=== PATIENT | female | born 1940 | race Caucasian/White ===

== ENCOUNTER → 2016-07-25 | Outpatient (CLI) | payer MEDICARE ==
[~2016-07-25] MED LIST: AMIO100T4 PO; AMIO200T PO; APIX5TAB2 PO; ATEN25TA PO; Amiodarone Hcl PO; DILT120C17 PO; DILT120C82 PO; FLUO40CA PO; HCTZ12.5T PO; NAPR220T76 PO; OMEP40CA36 PO; POTA10TA36 PO
--- OUTSIDE RECORDS SUMMARY | 2016-07-25 09:55 | XMS REPORT | Continuity of Care Document ---
Author Author [facility] Organization [facility] Address Unknown Phone Unavailable Care Team Providers Care Loan Counselor Name Role Phone Amarilys Masterson PCP [phone] Source Comments Some departments are not documenting in the electronic medical record. If you do not see the information that you expected, contact Release of Information in the Health Information Management department at [phone] for further assistance in locating additional records.[facility] Active Allergies and Adverse Reactions Allergen Noted Date Severity Reactions Comments Morphine 05/04/2014 NAUSEA AND VOMITING Current Medications Prescription Sig. Disp. Refills Start End Date Status Date amiodarone (CORDARONE) Take 200 mg by mouth Active 200 mg tablet daily. Decrease to 100mg on Friday, Friday, and Friday.All other days continue 200mg potassium chloride(+) Take 10 mEq by mouth Active (MICRO-K) 10 mEq capsule daily. apixaban (ELIQUIS) 5 mg Take 5 mg by mouth twice Active tab tablet daily. diltiazem SR (+) Take 120 mg by mouth Active (CARDIZEM SR) 120 mg twice daily. capsule FLUoxetine(+) (PROZAC) 40 Take 40 mg by mouth Active mg capsule daily. omeprazole DR(+) Take 40 mg by mouth Active (PRILOSEC) 40 mg capsule daily. Active Problems Problem Noted Date HTN (hypertension) 05/07/2014 Last Assessment & Plan: Controlled with meds. Her Home BP reading are falseliy high probably due to cuff error. Atrial fibrillation (HCC) 05/04/2014 Overview: 03/2014 - Admitted to hospital for newly dx AF with RVR, failed DCCV, Amiodarone intitiated, failed second DCCV. Plan to increase Amiodarone and repeat DCCV in one week. ([facility]) 04/26/2014 - DCCV: Successful cardioversion to terminate AF. ([facility]). 05/02/2014 - Stress Test: No ischemia or infarction on SPECT images. Small LV size with good contractility. EF=57%. Gated images are unreliable d/t underlying AF. ([facility]). 06/06/14 Afib ablation 01/01/16-per Via [facility]--EKG SR (sent to scan). No complaints of palpitations. Off amio since 04/2015. On cartia and eliquis L ast Assessment & Plan: Doing well on low dose amiodarone. LFTs and TSH at Dr Chopra office every 6 months. Continue Amio as long as her labs are good. Chronic anticoagulation 05/04/2014 Overview: On Eliquis Last Assessment & Plan: CHADSVASC score is high Continue Eliquis for [facility]. TIA (transient ischemic attack) 05/04/2014 GI bleed 05/04/2014 Overview: History of multiple GI bleeds PUD (peptic ulcer disease) 05/04/2014 Chest pain 05/04/2014 DWYER (dyspnea on exertion) 05/04/2014 Depression 05/04/2014 Most Recent Encounters Date Type Specialty Providers Description 07/02/2016 Documentation Cardiology Ritu Balbuena RN Amiodarone Monitoring - Primary Mobile Manager Dr. Peyton taveras. Social History Tobacco Use Types Packs/Day Years Used Date Never Smoker Smokeless Tobacco: Never Used Alcohol Use Drinks/Week oz/Week Comments No Last Filed Vital Signs Vital Sign Reading Time Taken Blood Pressure 142/72 02/13/2015 9:10 AM CDT Pulse 68 02/13/2015 9:10 AM CDT Temperature 36.8 C (98.2 F) 06/07/2014 9:26 AM CAREER COACH Respiratory Rate - - Height 1.524 m (5') 02/13/2015 9:10 AM CDT Weight 65.499 kg (144 lb 6.4 oz) 02/13/2015 9:10 AM CDT Body Mass Index 28.2 02/13/2015 9:10 AM CDT Oxygen Saturation 98% 06/07/2014 9:26 AM CAREER COACH Plan of Care Health Maintenance Due Date Last Done Comments Physical (Comprehensive) 1947 Exam Pertussis Vaccine 1950 Tetanus Vaccine 02/12/1956 Shingles Vaccine 1999 Osteoporosis Screening 02/12/2004 Prevnar/Pneumovax (#1) 02/12/2004 Influenza Vaccine 02/15/2016 Results from Last 3 Months Not on file
--- NOTE | 2016-07-25 19:02 | Diagnostic Imaging Report ---
Bilateral screening mammogram. The current study was also evaluated with a Computer Aided Detection (CAD) system. INDICATION: Screening. No current complaints stated on the questionnaire. COMPARISON: 06/14/15. FINDINGS: The breasts are composed of scattered fibroglandular hyperintensities. There are benign-appearing calcifications seen. A surveillance monitor projects over the medial aspect of the left breast. Allowing for technique and positional differences, no suspicious change is seen. IMPRESSION: No significant change. ACR BI-RADS Category 2: Benign findings. Result letter will be mailed to the patient. Note: At least 10% of breast cancer is not imaged by mammography. Dictated by: Dictated on workstation # [id number]
== END ==
LOC: RAD 09:52
PROVIDERS: ATTEND Internal Medicine
DX: Z12.31 Encounter for screening mammogram for malignant neoplasm of breast (principal)
CPT/HCPCS: 77067

== ENCOUNTER → 2017-03-05 | Day surgery (SDC) | payer MEDICARE ==
[~2017-03-05] MED LIST changes: +LIDOCAINE 2% VISCOUS 15 ML UDC ONE; +NS IV 1000 ML 1,000 ML IV SCH; +NS IV 1000 ML 1,000 ML ONE
--- OUTSIDE RECORDS SUMMARY | 2017-03-05 08:36 | XMS REPORT | Clinical Summary ---
Author Author [facility] Organization [facility] Address Unknown Phone Unavailable Care Team Providers Care Chief Librarian Extension Department Name Role Phone PCP Unavailable Source Comments Some departments are not documenting in the electronic medical record. If you do not see the information that you expected, contact Release of Information in the Health Information Management department at [phone] for further assistance in locating additional records.[facility] Allergies Active Allergy Reactions Severity Noted Date Comments Morphine NAUSEA AND VOMITING 05/04/2014 Current Medications Prescription Sig. Disp. Refills Start [...] and repeat DCCV in one week. ([facility]) 04/26/2014 - DCCV: Successful cardioversion to terminate AF. ([facility]). 05/02/2014 - Stress Test: No ischemia or infarction on SPECT images. Small LV size with good contractility. EF=57%. Gated images are unreliable d/t underlying AF. ([facility]). 06/06/14 Afib ablation 01/01/16-per Via [facility]--EKG SR (sent to scan). No complaints of palpitations. Off amio since 04/2015. On cartia and eliquis L ast Assessment & Plan: Doing well on low dose amiodarone. LFTs and TSH at Dr Chopra office every 6 months. Continue Amio as long as her labs are good. Chronic anticoagulation 05/04/2014 Overview: On Eliquis Last Assessment & Plan: CHADSVASC score is high Continue Eliquis for terminal block assembler. TIA (transient ischemic attack) 05/04/2014 GI bleed 05/04/2014 Overview: History of multiple GI bleeds PUD (peptic ulcer disease) 05/04/2014 Chest pain 05/04/2014 DWYER (dyspnea on exertion) 05/04/2014 Depression 05/04/2014 Social History Tobacco Use Types Packs/Day Years Used Date Never Smoker Smokeless Tobacco: Never Used Alcohol Use Drinks/Week oz/Week Comments No Sex Assigned at Date Recorded Not on file Last Filed Vital Signs Vital Sign Reading Time Taken Blood Pressure 142/72 02/13/2015 9:10 AM CDT Pulse 68 02/13/2015 9:10 AM CDT Temperature 36.8 C (98.2 F) 06/07/2014 9:26 AM ECONOMIC DEVELOPMENT SPECIALIST Respiratory Rate - - Oxygen Saturation 98% 06/07/2014 9:26 AM ECONOMIC DEVELOPMENT SPECIALIST Inhaled Oxygen - - Concentration Weight 65.5 kg (144 lb 6.4 oz) 02/13/2015 9:10 AM CDT Height 152.4 cm (5') 02/13/2015 9:10 AM CDT Body Mass Index 28.2 02/13/2015 9:10 AM CDT Plan of Treatment Health Maintenance Due Date Last Done Comments PHYSICAL (COMPREHENSIVE) 1947 EXAM PERTUSSIS VACCINE 1950 TETANUS VACCINE 02/12/1956 SHINGLES VACCINE 1999 OSTEOPOROSIS SCREENING 02/12/2004 PREVNAR/PNEUMOVAX (#1) 02/12/2004 INFLUENZA VACCINE 03/16/2017 Results Not on filefrom Last 3 Months
--- OUTSIDE RECORDS SUMMARY | 2017-03-05 08:36 | XMS REPORT | Continuity of Care Document ---
Author Author [facility] Organization [facility] Address Unknown Phone Unavailable Allergies Active Description Code Type Severity Reaction Onset Reported/Identified Relationship to Patient Clinical Status Yes morphine [id number] Drug Allergy Moderate NAUSEA 04/06/2014 Medications Problems Date Dx Coded Attending Type Code Diagnosis Diagnosed By 04/08/2014 JAMES KIMBLE MD Ot 300.00 ANXIETY STATE NOS 04/08/2014 JAMES KIMBLE MD Ot 311 DEPRESSIVE DISORDER NEC 04/08/2014 JAMES KIMBLE MD Ot 401.9 HYPERTENSION NOS 04/08/2014 JAMES KIMBLE MD Ot 427.31 ATRIAL FIBRILLATION 04/08/2014 JAMES KIMBLE MD Ot 530.81 ESOPHAGEAL REFLUX 04/08/2014 JAMES KIMBLE MD Ot 786.50 CHEST PAIN NOS 04/08/2014 JAMES KIMBLE MD Ot V03.82 PROPHYLACTIC VACC AGAINST STREPTOCOCCUS 04/08/2014 JAMES KIMBLE MD Ot V04.81 ND FOR PROPHYLACTIC VACCIN AND INOCULATI 04/08/2014 JAMES KIMBLE MD Ot V12.54 PERSONAL HX OF TIA, CEREBRAL INFARCTION 04/14/2014 JEFFY AC MD Ot 272.4 HYPERLIPIDEMIA NEC/NOS 04/14/2014 JEFFY AC MD Ot 276.8 HYPOPOTASSEMIA 04/14/2014 JEFFY AC MD Ot 300.00 ANXIETY STATE NOS 04/14/2014 JEFFY AC MD Ot 311 DEPRESSIVE DISORDER NEC 04/14/2014 JEFFY CA MD Ot 401.9 HYPERTENSION NOS 04/14/2014 JEFFY AC MD Ot 427.31 ATRIAL FIBRILLATION 04/14/2014 JEFFY AC MD Ot 530.81 ESOPHAGEAL REFLUX 04/14/2014 JEFFY AC MD Ot 785.9 CARDIOVAS SYS SYMP NEC 04/14/2014 JEFFY AC MD Ot 786.50 CHEST PAIN NOS 04/14/2014 JEFFY AC MD Ot 799.02 HYPOXEMIA 04/14/2014 JEFFY AC MD Ot V12.54 PERSONAL HX OF TIA, CEREBRAL INFARCTION 04/14/2014 JEFFY AC MD Ot V12.71 PERSONAL HISTORY OF PEPTIC ULCER DISEASE 04/14/2014 JEFFY AC MD Ot V45.77 ACQRD ABSENCE OF GENITAL ORGANS 04/14/2014 JEFFY AC MD Ot V58.61 ANTICOAGULANTS,LT,CURRENT USE 04/27/2014 JEFFY AC MD Ot 272.4 HYPERLIPIDEMIA NEC/NOS 04/27/2014 JEFFY AC MD Ot 276.8 HYPOPOTASSEMIA 04/27/2014 JEFFY AC MD Ot 401.9 HYPERTENSION NOS 04/27/2014 JEFFY AC MD Ot 427.31 ATRIAL FIBRILLATION 04/27/2014 JEFFY AC MD Ot 785.0 TACHYCARDIA NOS 04/27/2014 JEFFY AC MD Ot 786.09 RESPIRATORY ABNORM NEC 04/27/2014 JEFFY AC MD Ot 786.50 CHEST PAIN NOS 04/27/2014 JEFFY AC MD Ot V12.54 PERSONAL HX OF TIA, CEREBRAL INFARCTION 04/27/2014 JEFFY AC MD Ot 272.4 04/27/2014 JEFFY AC MD Ot 276.8 04/27/2014 JEFFY AC MD Ot 401.9 04/27/2014 JEFFY AC MD Ot 427.31 04/27/2014 JEFFY AC MD Ot 785.0 04/27/2014 JEFFY AC MD Ot 786.09 04/27/2014 JEFFY AC MD Ot 786.50 04/27/2014 JEFFY AC MD Ot V12.54 05/09/2014 FRANK RIVERA DO Ot 300.00 ANXIETY STATE NOS 05/09/2014 FRANK RIVERA DO Ot 427.31 ATRIAL FIBRILLATION 05/09/2014 FRANK RIVERA DO Ot 786.50 CHEST PAIN NOS 05/09/2014 RANJAN ALVAREZ Ot 272.4 05/09/2014 RANJAN ALVAREZ Ot 401.9 05/09/2014 RANJAN ALVAREZ Ot 427.31 05/09/2014 RANJAN ALVAREZ Ot 786.09 05/09/2014 SOLA GIBSON YOUTH MINISTRY DIRECTOR Ot 427.31 05/30/2014 EMILY SUN RANJAN K Ot 272.4 05/30/2014 RANJAN ALVAREZ Ot 401.9 05/30/2014 RANJAN ALVAREZ K Ot 427.31 05/30/2014 EMILY SUN RANJAN K Ot 786.09 03/02/2015 OSORIO BAPTISTE, JEFFY Ellis Ot 272.4 03/02/2015 OSORIO BAPTISTE, JEFFY Ellis Ot 401.9 03/02/2015 OSORIO BAPTISTE, JEFFY Ellis Ot 427.31 03/02/2015 OSORIO BAPTISTE, JEFFY Ellis Ot 786.59 07/07/2015 JAMES KIMBLE MD Ot Z12.31 07/19/2016 Ot V76.12 OTH SCREEN MAMMO-MALIGN NEOPLASM OF PROMISE 07/19/2016 SOLA GIBSON YOUTH MINISTRY DIRECTOR Ot 427.31 ATRIAL FIBRILLATION 07/19/2016 RANJAN ALVAREZ K Ot 272.4 HYPERLIPIDEMIA NEC/NOS 07/19/2016 EMILY SUN RANJAN K Ot 401.9 HYPERTENSION NOS 07/19/2016 EMILY SUN RANJAN K Ot 427.31 ATRIAL FIBRILLATION 07/19/2016 EMILY SUN RANJAN K Ot 786.09 RESPIRATORY ABNORM NEC 07/19/2016 OSORIO BAPTISTE, JEFFY J Ot 272.4 HYPERLIPIDEMIA NEC/NOS 07/19/2016 OSORIO BAPTISTE, JEFFY Ellis Ot 401.9 HYPERTENSION NOS 07/19/2016 OSORIO BAPTISTE, JEFFY Ellis Ot 427.31 ATRIAL FIBRILLATION 07/19/2016 OSORIO BPATISTE, JEFFY Ellis Ot 786.59 CHEST PAIN NEC 07/19/2016 SHYANNE BAPTISTE, JAMES Panda Ot Z12.31 ENCNTR SCREEN MAMMOGRAM FOR MALIGNANT NE 07/25/2016 Ot V76.12 OTH SCREEN MAMMO-MALIGN NEOPLASM OF PROMISE 07/25/2016 SOLA GIBSON YOUTH MINISTRY DIRECTOR Ot 427.31 ATRIAL FIBRILLATION 07/25/2016 TISHA ALVAREZTH K Ot 272.4 HYPERLIPIDEMIA NEC/NOS 07/25/2016 TISHA ALVAREZTH K Ot 401.9 HYPERTENSION NOS 07/25/2016 TISHA ALVAREZTH K Ot 427.31 ATRIAL FIBRILLATION 07/25/2016 RANJAN ALVAREZ Ot 786.09 RESPIRATORY ABNORM NEC 07/25/2016 JEFFY AC MD Ot 272.4 HYPERLIPIDEMIA NEC/NOS 07/25/2016 JEFFY AC MD Ot 401.9 HYPERTENSION NOS 07/25/2016 JEFFY AC MD Ot 427.31 ATRIAL FIBRILLATION 07/25/2016 JEFFY AC MD Ot 786.59 CHEST PAIN NEC 07/25/2016 JAMES KIMBLE MD Ot Z12.31 ENCNTR SCREEN MAMMOGRAM FOR MALIGNANT NE 07/25/2016 JAMES KIMBLE MD Ot Z12.31 ENCNTR SCREEN MAMMOGRAM FOR MALIGNANT NE 07/25/2016 JAMES KIMBLE MD Ot Z12.31 ENCNTR SCREEN MAMMOGRAM FOR MALIGNANT NE 07/26/2016 JAMES KIMBLE MD Ot Z12.31 ENCNTR SCREEN MAMMOGRAM FOR MALIGNANT NE 08/07/2016 JAMES KIMBLE MD, Ot Z12.31 ENCNTR SCREEN MAMMOGRAM FOR MALIGNANT NE Procedures Code Description Performed By Performed On 99.61 ATRIAL CARDIOVERSION 04/07/2014 37.79 REVISION OR RELOCATION OF CARDIAC DEVICE 04/13/2014 99.61 ATRIAL CARDIOVERSION 04/13/2014 Results Encounters ACCT No. Visit Date/Time Discharge Status Pt. Type Provider Facility Loc./Unit Complaint [id number] 07/25/2016 09:52:00 2016 23:59:59 CLS Outpatient JAMES KIMBLE MD [facility] RAD SCREENING [id number] 06/14/2015 10:22:00 2014 23:59:59 CLS Outpatient JAMES KIMBLE MD [facility] RAD SCREENING [id number] 02/09/2015 11:02:00 2014 23:59:59 CLS Outpatient JEFFY AC MD [facility] LAB A-FIB,CP,HTN,FLP [id number] 05/09/2014 11:34:00 2013 12:57:00 DIS Emergency FRANK RIVERA DO [facility] ER CHEST PAIN [id number] 05/02/2014 07:09:00 2013 23:59:59 CLS Outpatient RANJAN ALVAREZ [facility] CARD AFIB [id number] 04/26/2014 10:15:00 2013 14:35:00 DIS Inpatient JEFFY AC MD [facility] ICU A FIB [id number] 04/13/2014 09:33:00 2013 16:45:00 DIS Inpatient JEFFY AC MD [facility] ICU AFIB [id number] 04/06/2014 17:33:00 2013 10:21:00 DIS Inpatient JAMES KIMBLE MD [facility] ICU AFIB RVR [id number] 04/06/2014 15:57:00 2013 23:59:59 CLS Outpatient SOLA GIBSON APRN [facility] CARD TACKACARDIA [id number] 03/05/2017 10:30:00 PEN Preadmit JEFFY AC MD [facility] CATH AFIB,SOB,HTN,HLP [id number] 03/04/2017 15:12:00 PEN Preadmit JEFFY AC MD [facility] CARD HTN I10 [id number] 04/05/2011 14:12:00 Document Registration
--- NOTE | 2017-03-05 09:32 | Diagnostic Imaging Report ---
INDICATION: Pre cardioversion. Loop recorder overlies the left chest. Heart size within the upper limits of normal, unchanged. No gross overdistention of the vascularity. No edema, pneumonia, effusion, or pneumothorax. IMPRESSION: No acute appearing abnormality Dictated by: Dictated on workstation # [id number]
[2017-03-05 09:34] LABS: RED BLOOD COUNT 4.56 10^6/uL (4.35-5.85); RED CELL DISTRIBUTION WIDTH 14.1 % (10.0-14.5); WHITE BLOOD COUNT 9.5 10^3/uL (4.3-11.0)
[2017-03-05 10:02] LABS: ALANINE AMINOTRANSFERASE 14 U/L (0-55); ALBUMIN 4.1 GM/DL (3.2-4.5); ANION GAP 11 MMOL/L (5-14); ASPARTATE AMINO TRANSFERASE 16 U/L (5-34); BILIRUBIN,TOTAL 0.6 MG/DL (0.1-1.0); BLOOD UREA NITROGEN 9 MG/DL (7-18); BUN/CREATININE RATIO 13; CALCIUM 9.3 MG/DL (8.5-10.1); CARBON DIOXIDE 23 MMOL/L (21-32); CHLORIDE 106 MMOL/L (98-107); CREATININE SERUM 0.72 MG/DL (0.60-1.30); GFR ESTIMATED > 60; GLUCOSE 109 MG/DL (70-105); POTASSIUM 3.7 MMOL/L (3.6-5.0); SODIUM 140 MMOL/L (135-145); TOTAL PROTEIN 7.3 GM/DL (6.4-8.2)
== END ==
LOC: CATH 08:34
PROVIDERS: ATTEND Internal Medicine Cardiovascular Disease
DX: I48.91 Unspecified atrial fibrillation (principal); Z53.8 Procedure and treatment not carried out for other reasons; R06.02 Shortness of breath; I10 Essential (primary) hypertension; E78.5 Hyperlipidemia, unspecified
CPT/HCPCS: 36415; 71010; 80053; 85027; 93005

== ENCOUNTER 2017-03-20 10:28 | Outpatient (CLI) | payer MEDICARE ==
[~2017-03-20] VITALS: Ht 152.4 cm; Wt 63.5 kg
[~2017-03-20 10:28] MED LIST changes: +AMIO200T2 PO; +APIX5TAB PO; +DILT120C53 PO; +FLUO40CA12 PO; -LIDOCAINE 2% VISCOUS 15 ML UDC ONE; +METO-270 PO; -NS IV 1000 ML 1,000 ML IV SCH; -NS IV 1000 ML 1,000 ML ONE
== END 2017-03-20 10:31 ==
LOC: PREOP 10:28
PROVIDERS: ATTEND Internal Medicine
DX: K22.70 Barrett's esophagus without dysplasia; Z01.818 Encounter for other preprocedural examination

== ENCOUNTER 2017-03-21 08:15 | Day surgery (SDC) | payer MEDICARE ==
--- NOTE | 2017-03-19 10:35 | HISTORY AND PHYSICAL ---
DATE OF SERVICE: DATE OF ADMISSION: 03/21/2017 This is an EGD H and P. REFERRING PHYSICIAN: Dr. Masterson. HISTORY OF PRESENT ILLNESS: The patient is a 77-year-old white female referred for surveillance EGD due to past history of Otero's esophagus. It has been well over 5 years since her last EGD which she believes was done by Dr. Davis. She reports that she feels well. She denies dysphagia, heartburn, bright red blood per rectum, melena or weight loss. She is not aware of any family history for GI tract malignancy including esophageal cancer. PAST MEDICAL HISTORY: Paroxysmal atrial fibrillation but has not required cardioversion. She was recently placed on amiodarone due to recent recurrence that required a short-term hospitalization. She also has history of hypertension and coronary artery disease with no past history of stent placement. She also denies heart failure, orthopnea, PND or pedal edema. SOCIAL HISTORY: She is with no past smoking or drinking history. PAST SURGICAL HISTORY: Significant for an appendectomy and hysterectomy for benign reasons in the distant past. FAMILY HISTORY: She is not aware of any family history for GI tract malignancy including colon cancer and esophageal cancer. PHYSICAL EXAMINATION: GENERAL: Reveals a well appearing elderly white female who appears to be in no acute distress. VITAL SIGNS: Blood pressure 110/70. CHEST: Clear. CARDIOVASCULAR: Reveals regular rate and rhythm without murmur, S3 or S4. NECK: Revealed no JVD, adenopathy or bruits. ABDOMEN: Soft, supple without mass, organomegaly or tenderness. EXTREMITIES: Reveal no cyanosis, clubbing or edema. ASSESSMENT: The patient was set up for surveillance EGD. On the 21 of March. She is to hold Eliquis 48 hours prior to her procedure and continue her other medications. I thank you for the referral of this pleasant lady. Job ID: [id number] DocumentID: [id number] Dictated Date: 03/13/2017 11:46:36 Entry Level Sales Associate Date: 03/13/2017 12:39:34 Dictated By: BHUMIKA ALMANZA MD
[~2017-03-21] VITALS: Ht 152.4 cm; Wt 63.5 kg
[2017-03-21] MEDS ORDERED: D5 LR IV SOLUTION 1,000 ML IV STA (08:29)
[2017-03-21] MEDS ORDERED: LIDOCAINE JELLY 2% (XYLOCAINE) 5 ML TUBE MM PRN (08:30)
[2017-03-21] MEDS ORDERED: HURRICAINE EXT TUBE (BENZOCAINE) XX PRN (08:30)
[2017-03-21] MEDS ORDERED: D5 LR IV SOLUTION 1,000 ML IV ONE (08:33)
[2017-03-21 08:51] VITALS: BP 126/80
--- NOTE | 2017-03-21 09:16 | Pre-Op Note & Conscious Sedat ---
Pre-Operative Progress Note H&P Reviewed The H&P was reviewed, patient examined and no changes noted. Date H&P Reviewed: Mar 21, 2017 Time H&P Reviewed: 09:15 Conscious Sedation Pre-Proced ASA Class: 2 Airway Mallampati Classification: ([place] appropriate class) I. II. III, IV Lungs Heart ASA score ASA 1: a normal healthy patient ASA 2: a patient with a mild systemic disease (mid diabetes, controlled hypertension, obesity ASA 3: a patient with a severe systemic disease that limits activity (angina , COPD, prior Myocardial infarction) ASA 4: a patient with an incapacitating disease that is a constant threat to life (CHF, renal failure) ASA 5: a moribund patient not expected to survive 24 hrs. (ruptured aneurysm) ASA 6: a declared brain patient whose organs are being harvested. For emergent operations, add the letter E after the classification Grade 2 Sedation Plan: Analgesia, Amnesia, Plan communicated to team members, Discussed options with patient/fam, Discussed risks with patient/fam Note The patient is an appropriate candidate to undergo the planned procedure, sedation, and anesthesia. The patient immediately re-assessed prior to indication. BHUMIKA ALMANZA MD Mar 21, 2017 09:16
[2017-03-21] MEDS ORDERED: fentaNYL INJECTION 100 MCG/2 ML AMP ONE (09:24)
[2017-03-21] MEDS ORDERED: HURRICAINE EXT TUBE (BENZOCAINE) ONE (09:24)
[2017-03-21] MEDS ORDERED: MIDAZOLAM 2 MG/2 ML (VERSED) VIAL ONE ×2 (09:24→09:42)
[2017-03-21] MEDS ORDERED: LIDOCAINE JELLY 2% (XYLOCAINE) 5 ML TUBE ONE (09:25)
[2017-03-21] MEDS: fentaNYL INJECTION 100 MCG/2 ML AMP IVP PRN ×2 (09:38→09:46)
[2017-03-21] MEDS: MIDAZOLAM 2 MG/2 ML (VERSED) VIAL IVP PRN ×2 (09:44→09:50)
[2017-03-21 10:10] VITALS: BP 105/65
[2017-03-21 10:40] VITALS: BP 124/72
[2017-03-21 11:19] VITALS: BP 124/72
--- NOTE | 2017-03-22 10:17 | OPERATIVE REPORT ---
DATE OF SERVICE: 03/21/2017 REFERRING PHYSICIAN: Hemant Masterson MD. EGD is performed for surveillance purposes due to past history of Otero's esophagus. The patient was placed in the left lateral decubitus position. The endoscope was inserted into the oral cavity and under direct visualization the esophagus was intubated. The scope was passed down the esophagus through the stomach and second portion of the duodenum. Careful inspection was made as the endoscope was withdrawn. The patient tolerated the procedure well. FINDINGS: Posterior hypopharynx arytenoid aperture, true and false vocal folds were unremarkable on gross inspection. Proximal mid esophagus were unremarkable. A small hiatal hernia was present. The Z line was proximally placed at 35 cm from the incisoral orifice. The Z line was somewhat fragmented and compatible with short segment Otero's. There was no evidence for erosive esophagitis and no evidence to suggest malignancy on gross inspection. No rings, webs or strictures were present. Four-quadrant biopsies were obtained and submitted for histopathology. The cardia, fundus and antrum of the stomach were unremarkable as was the pylorus, the pyloric channel, duodenal bulb and second portion of the duodenum. ASSESSMENT: Findings suggest short-segment Otero's with a small hiatal hernia, but no evidence for erosive esophagitis or malignancy. As long as high-grade dysplasia is not noted, considering this patient's age and medical comorbidities, I would not recommend future surveillance EGD evaluation. I thank you for the referral. Job ID: [id number] DocumentID: [id number] Dictated Date: 03/21/2017 13:15:55 Manager Recovery Date: 03/21/2017 23:35:30 Dictated By: BHUMIKA ALMANZA MD [facility]
== END 2017-03-21 11:30 | disposition home or self-care (01) ==
LOC: ENDO 08:15
PROVIDERS: ATTEND Internal Medicine
DX: K21.9 Gastro-esophageal reflux disease without esophagitis (principal); K44.9 Diaphragmatic hernia without obstruction or gangrene; I48.0 Paroxysmal atrial fibrillation; I10 Essential (primary) hypertension; I25.10 Atherosclerotic heart disease of native coronary artery without angina pectoris

== ENCOUNTER → 2017-03-26 | Outpatient (CLI) | payer MEDICARE ==
[~2017-03-26] MED LIST changes: +CATHETER FLUSH 10 ML SYR IV PRN; +REGADENOSON 0.4 MG/5 ML SYR (LEXISCAN) IV ONE
[2017-03-26 10:16] VITALS: BP 119/84
[2017-03-26 10:20] VITALS: BP 152/79
--- NOTE | 2017-03-27 07:57 | STRESS TEST ---
DATE OF SERVICE: 03/26/2017 LEXISCAN MYOVIEW STRESS TEST REPORT Baseline heart rate is 83, baseline blood pressure 155/79. Baseline EKG is atrial fibrillation with no ischemic changes. In summary, the patient was injected with 10.97 mCi of technetium-99 Myoview and the resting images were obtained. Then, the patient received 0.4 mg of Lexiscan followed by 31.0 mCi of technetium-99 Myoview. Throughout the test, there were no EKG changes. The patient continued to be in atrial fibrillation. The resting and stress images were reviewed and compared in the short axis, horizontal long axis, and vertical long axis views. Review of the images showed breast attenuation with mild decreased uptake at the basal to mid anterior wall with subtle reversibility. No significant ischemia was noted. SSS is 5, SDS 2, TID value 1.04. On the gated images, the left ventricle appeared to be normal size. Normal contractility, calculated ejection fraction 59%. CONCLUSION: 1. The patient tolerated Lexiscan well. 2. Baseline atrial fibrillation persisted . 3. Breast attenuation affecting the quality of the images with no significant ischemia or infarction on SPECT images. 4. Normal left ventricular size with normal contractility, calculated ejection fraction 59%. Job ID: [id number] DocumentID: [id number] Dictated Date: 03/26/2017 15:32:04 Head Stock Transfer Clerk Date: 03/27/2017 01:28:45 Dictated By: JEFFY AC MD
== END ==
LOC: CARD 08:10
PROVIDERS: ATTEND Internal Medicine Cardiovascular Disease
DX: R07.9 Chest pain, unspecified (principal); R06.09 Other forms of dyspnea; I48.0 Paroxysmal atrial fibrillation; I10 Essential (primary) hypertension; E78.2 Mixed hyperlipidemia
CPT/HCPCS: 78452; 93017

== ENCOUNTER → 2017-11-19 | Outpatient (CLI) | payer MEDICARE, OTHER ==
[~2017-11-19] MED LIST changes: -CATHETER FLUSH 10 ML SYR IV PRN; -METO-270 PO; +METO-387 PO; -REGADENOSON 0.4 MG/5 ML SYR (LEXISCAN) IV ONE
--- NOTE | 2017-11-19 22:53 | Diagnostic Imaging Report ---
Digital mammogram bilateral screening with 3-D tomosynthesis This study was compared to the prior exams of 07/25/16 and 06/14/2015. At this time, there are no current complaints. The current study was also evaluated with a Computer Aided Detection (CAD) system. FINDINGS: The fibroglandular tissue in both breasts is heterogeneously dense. This does limit the sensitivity of this exam. Overall, there does not appear to have been any significant change when compared to the prior study. No primary or secondary sign of malignancy is noted. The loop recorder device in the medial aspect of the left breast seen previously is again evident and no different. IMPRESSION: There is no radiographic evidence for malignancy. ACR BI-RADS Category 1: Negative. Result letter will be mailed to the patient. Note: At least 10% of breast cancer is not imaged by mammography. Dictated by: Dictated on workstation # [id number]
== END ==
LOC: RAD 09:25
PROVIDERS: ATTEND Nurse Practitioner
DX: Z12.31 Encounter for screening mammogram for malignant neoplasm of breast (principal)
CPT/HCPCS: 77067

== ENCOUNTER 2018-05-19 20:34 | Emergency (ER) | payer MEDICARE, OTHER ==
[~2018-05-19] VITALS: Ht 149.9 cm; Wt 62.6 kg
[~2018-05-19 20:34] MED LIST changes: -AMIO200T2 PO; +AMIO200T4 PO
--- NOTE | 2018-05-19 20:44 | ED EENT ---
History of Present Illness General Stated Complaint: FALL, HEAD INJ Source: patient, family Exam Limitations: no limitations History of Present Illness Date Seen by Provider: May 19, 2018 Time Seen by Provider: 20:41 Initial Comments To ER per private vehicle with reports of a head injury. She tripped and fell in the parking lot and [place]. She landed on the right side of her face and has an abrasion to her right cheek. No loss of consciousness. However, she is on Eliquis. Timing/Duration: abrupt Severity: moderate Location: facial Allergies and Home Medications Allergies Coded Allergies: morphine (Unverified Allergy, Intermediate, NAUSEA, 03/20/17) acute vomiting occured when last given Home Medications Amiodarone HCl 200 Mg Tablet, 200 MG PO DAILY, (Reported) Diltiazem HCl 120 Mg Cap.er.24h, 120 MG PO DAILY, (Reported) Fluoxetine HCl 40 Mg Capsule, 40 MG PO DAILY, (Reported) Metoprolol Succinate 25 Mg Tab.er.24h, 25 MG PO DAILY, (Reported) Patient Home Medication List Home Medication List Reviewed: Yes Review of Systems Review of Systems Constitutional: see HPI Eyes: No Symptoms Reported Ears: No Symptoms Reported Nose: no symptoms reported Mouth: no symptoms reported Throat: no symptoms reported Respiratory: no symptoms reported Cardiovascular: no symptoms reported Musculoskeletal: see HPI Skin: no symptoms reported Neurological: No Symptoms Reported Hematologic/Lymphatic: No Symptoms Reported Past Rspeevi-Eenbbw-Yahohh Hx Patient Social History Recent Foreign Travel: No Contact w/Someone Who Travel: No Recent Hopitalizations: No Immunizations Up To Date Tetanus Booster (TDap): More than 5yrs PED Vaccines UTD: No Date of Pneumonia Vaccine: Apr 08, 2014 Date of Influenza Vaccine: Apr 08, 2014 Seasonal Allergies Seasonal Allergies: No Past Medical History Appendectomy, Hysterectomy Currently Using CPAP: No Atrial Fibrillation, Hypertension Reproductive Disorders: No Female 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 0.0oz. 63.522153bh; 27.3 BMI Method:Stated General Appearance: WD/WN, no apparent distress Eyes: bilateral eye normal inspection, bilateral eye PERRL, bilateral eye EOMI Ears: bilateral ear auricle normal, bilateral ear canal normal, bilateral ear TM normal Nose: No discharge, No dried blood, No sinus tenderness Mouth/Throat: normal mouth inspection, other (abrasion to the right cheek. Extraocular muscles are intact. No scalp hematoma or laceration.) Neck: non-tender, full range of motion; No tender lateral, No tender midline Respiratory: normal breath sounds, no respiratory distress, no accessory muscle use Gastrointestinal: normal bowel sounds, non tender Neurologic/Psychiatric: alert, normal mood/affect, oriented x 3 Skin: normal color, warm/dry Progress/Results/Core Measures Results/Orders My Orders Orders - BUD YO APRN Ct Head/Face/Cervical Wo (05/19/18 20:40) Dipht,Pertuss(Acell),Tet Adult (Boostrix (05/19/18 20:45) Medications Given in ED Current Medications Medications Dose Ordered Sig/Thais Route Start Time Stop Time Status Last Admin Dose Admin Diphtheria/ Tetanus/Acell Pertussis 0.5 ml ONCE ONCE IM 05/19/18 20:45 05/19/18 20:46 DC 05/19/18 20:52 0.5 ML Vital Signs/I&O 05/19/18 20:39 Temp 97.7 Pulse 63 Resp 18 B/P (MAP) 176/81 (112) Pulse Ox 98 O2 Delivery Room Air Departure Impression Primary Impression: Facial contusion Qualified Codes: S00.83XA - Contusion of other part of head, initial encounter Additional Impressions: Abrasion Minor head injury without loss of consciousness Qualified Codes: S09.90XA - Unspecified injury of head, initial encounter Departure-Patient Inst. Decision time for Depature: 20:43 Referrals: JAMES KIMBLE MD (PCP/Family) Primary Care Physician Patient Instructions: Minor Head Injury (DC), Skin Abrasions Add. Discharge Instructions: 1. Follow-up with your doctor next week 2. Return to ER for any concerns such as headache, confusion, nausea vomiting as you may need a repeat CT scan at that time BUD YO APRN May 19, 2018 20:44
[2018-05-19] MEDS ORDERED: TETANUS,DIPTH,PERTUSS P/F (BOOSTRIX) 0.5 ML VIAL IM ONE (20:45)
[2018-05-19 22:00] VITALS: BP 159/70
--- NOTE | 2018-05-19 22:02 | Diagnostic Imaging Report ---
EXAMS: CT BRAIN, CT CERVICAL SPINE, CT MAXILLOFACIAL CT BRAIN FINDINGS: A noncontrast brain CT is performed. There are mild diffuse atrophic changes. There were no extra-axial fluid collections. No intracranial hemorrhage. No intracranial mass or mass effect. No midline shift. There are patchy low-density changes throughout the deep white matter compatible with chronic ischemic change. There is no acute intracranial finding. Calvarial windows show no fracture. CT CERVICAL SPINE FINDINGS: Axial slices were obtained with sagittal and coronal reconstructions without contrast. There was no evidence of cervical spine fracture. There is no subluxation or malalignment. There is diffuse facet degenerative change. There is disc space narrowing most prominent at C5-6 and C6-[address] MAXILLOFACIAL FINDINGS: Axial slices are obtained with sagittal and coronal reconstructions without contrast. No facial fractures are evident. The sinuses appear clear. There is no intraorbital hematoma. IMPRESSION: CT HEAD demonstrates chronic ischemic changes in the deep white matter. There is no acute hemorrhage or mass effect or calvarial fracture. CT CERVICAL SPINE shows degenerative findings as described above with no acute fracture or subluxation. CT MAXILLOFACIAL demonstrates no evidence of facial fracture or intraorbital hematoma. The sinuses are well-aerated. Dictated by: Dictated on workstation # [id number]
== END 2018-05-19 22:01 | disposition home or self-care (01) ==
LOC: EDUNIT# 20:34 → ER 20:36
DX: S09.90XA Unspecified injury of head, initial encounter (principal); S00.83XA Contusion of other part of head, initial encounter; I48.91 Unspecified atrial fibrillation; I10 Essential (primary) hypertension; K21.9 Gastro-esophageal reflux disease without esophagitis; Z23 Encounter for immunization; Z82.49 Family history of ischemic heart disease and other diseases of the circulatory system; Z87.19 Personal history of other diseases of the digestive system; Z88.5 Allergy status to narcotic agent; Z79.01 Long term (current) use of anticoagulants; Z90.49 Acquired absence of other specified parts of digestive tract; Z90.710 Acquired absence of both cervix and uterus; W01.0XXA Fall on same level from slipping, tripping and stumbling without subsequent striking against object, initial encounter; Y92.481 Parking lot as the place of occurrence of the external cause
CPT/HCPCS: 70450; 70486; 72125; 90715

== ENCOUNTER → 2018-08-06 | Outpatient (CLI) | payer MEDICARE ==
[~2018-08-06] MED LIST changes: +CATHETER FLUSH 10 ML SYR IV PRN; +IOHEXOL 350 MG/ML 100 ML (OMNIPAQUE 350) VIAL IV ONE; +NS 100 ML (IVPB) BAG IV ONE; +RECEIVED CONTRAST (Hold Metformin) IV SCH
--- NOTE | 2018-08-06 11:47 | Diagnostic Imaging Report ---
PROCEDURE: CT abdomen with contrast only. TECHNIQUE: Multiple contiguous axial images were obtained through the abdomen after the administration of intravenous contrast. INDICATION: Elevated liver enzymes. FINDINGS: Imaging through the lung bases does show a slightly irregular density in the lateral portion of the right lower lobe measuring 9 mm. Remainder of the lung bases are unremarkable. Liver does contain a circumscribed hypoattenuating mass in the dome of the right lobe measuring 8 mm. This is too small to categorize but most likely represents a cyst. No other liver masses are seen. Gallbladder is unremarkable. No biliary duct dilatation is seen. The pancreas and spleen are unremarkable. No adrenal mass is identified. Kidneys are unremarkable. Aorta is calcified but non-aneurysmal. No central retroperitoneal or mesenteric lymphadenopathy is identified. The visualized small and large bowel loops are normal in caliber. No obstruction is seen. There is no ascites. IMPRESSION: 1. Irregular right lower lobe 9 mm density, indeterminate. While this may represent a small area of scarring, small pulmonary neoplasm cannot be entirely excluded. Interval followup to confirm stability is recommended with repeat CT chest in approximately 3 months. 2. Probable small cyst in the dome of the liver. CT of the abdomen is otherwise unremarkable. Dictated by: Dictated on workstation # [id number]
== END ==
LOC: RAD 10:30
PROVIDERS: ATTEND Internal Medicine
DX: J98.4 Other disorders of lung (principal); R94.5 Abnormal results of liver function studies
CPT/HCPCS: 74160

== ENCOUNTER 2018-08-14 08:56 | Day surgery (SDC) | payer MEDICARE ==
[~2018-08-14] VITALS: Ht 149.9 cm; Wt 62.6 kg
[~2018-08-14 08:56] MED LIST changes: -CATHETER FLUSH 10 ML SYR IV PRN; -IOHEXOL 350 MG/ML 100 ML (OMNIPAQUE 350) VIAL IV ONE; -NS 100 ML (IVPB) BAG IV ONE; -RECEIVED CONTRAST (Hold Metformin) IV SCH
[2018-08-14 09:05] VITALS: BP 166/64
[2018-08-14] MEDS ORDERED: D5 LR IV SOLUTION 1,000 ML IV ONE (09:16)
[2018-08-14] MEDS ORDERED: MIDAZOLAM 2 MG/2 ML (VERSED) VIAL IVP ONE (09:30)
[2018-08-14] MEDS ORDERED: LIDOCAINE JELLY 2% 6 ML SYRINGE MM PRN (09:30)
[2018-08-14] MEDS ORDERED: HURRICAINE EXT TUBE (BENZOCAINE) XX ONE (09:30)
[2018-08-14] MEDS ORDERED: D5 LR IV SOLUTION 1,000 ML IV STA (09:30)
[2018-08-14] MEDS ORDERED: fentaNYL INJECTION 100 MCG/2 ML AMP IVP ONE (09:30)
--- NOTE | 2018-08-14 09:41 | HISTORY AND PHYSICAL ---
DATE OF SERVICE: EGD HISTORY AND PHYSICAL HISTORY OF PRESENT ILLNESS: The patient is a 78-year-old white female referred by Dr. Masterson for EGD evaluation. She reports for the past 2 months, she has had significant problems with early satiety and intermittent nausea and vomiting, feeling like food is not passing. She denies hematemesis and has noted no melena. She reports at least a 5 pound weight loss over that time and her weight is down 8 pounds compared to October. After seeing Dr. Masterson, she underwent CT scanning of the abdomen that did not reveal any evidence for gallbladder or biliary pathology. She did have an irregular right lower lobe 9 mm density indeterminant involving the lung and a probable small cyst in the dome of the liver. No other abnormalities were noted. I had performed an EGD on her for reported Otero's surveillance in 03/2017, at which time biopsies revealed no evidence for Otero's. There was no evidence for erosive esophagitis or significant hiatal hernia formation. No evidence for peptic ulcer disease was noted. PAST MEDICAL HISTORY: Significant for atrial fibrillation, hypertension and coronary artery disease. She has had no recent heart problems or stent placement. MEDICATIONS ON ADMISSION: Include Eliquis 5 mg b.i.d., omeprazole 40 mg daily, fluoxetine 40 mg daily, diltiazem 120 mg daily, metoprolol 25 mg daily. FAMILY HISTORY: She is not aware of any family history for GI tract malignancy. PHYSICAL EXAMINATION: GENERAL: Reveals a white female who did not appear to be in acute distress. VITAL SIGNS: Blood pressure was 146/64. HEENT: Unremarkable. There is no evidence for pallor or scleral icterus. CHEST: Clear to auscultation. CARDIOVASCULAR: Reveals a regular rate and rhythm with a soft 1/2 systolic ejection murmur heard best at second intercostal space without evidence of pulsus, parvus et tardus. No S3 or S4 were noted. ABDOMEN: Soft, supple without mass, organomegaly and currently the patient reported no pain to palpation. Bowel sounds were positive. No evidence for borborygmi was noted. No distention was noted. EXTREMITIES: Reveal no cyanosis, clubbing or edema. ASSESSMENT AND PLAN: The patient is set up for EGD evaluation on 10/14. She is to hold Eliquis and continue her other medications. If EGD does not reveal any evidence to suggest gastric outlet obstruction or peptic ulcer disease, we will proceed with abdominal sonography and consideration for HIDA scan with CCK if abdominal sonography is unremarkable. I thank you for the referral of this pleasant lady. Job ID: [id number] DocumentID: [id number] Dictated Date: 08/13/2018 16:29:36 Brush Cleaner Date: 08/13/2018 17:05:12 Dictated By: BHUMIKA ALMANZA MD
--- NOTE | 2018-08-14 09:49 | Pre-Op Note & Conscious Sedat ---
Pre-Operative Progress Note H&P Reviewed The H&P was reviewed, patient examined and no changes noted. Date H&P Reviewed: Aug 14, 2018 Time H&P Reviewed: 09:49 Conscious Sedation Pre-Proced ASA Score 2 For ASA 3 and 4: Consider anesthesia and medical clearance. Also, for patients with a history of failed moderate sedation consider anesthesia. Airway Lungs Heart ASA score ASA 1: a normal healthy patient ASA 2: a patient with a mild systemic disease (mid diabetes, controlled hypertension, obesity ASA 3: a patient with a severe systemic disease that limits activity (angina , COPD, prior Myocardial infarction) ASA 4: a patient with an incapacitating disease that is a constant threat to life (CHF, renal failure) ASA 5: a moribund patient not expected to survive 24 hrs. (ruptured aneurysm) ASA 6: a declared brain- patient whose organs are being harvested. For emergent operations, add the letter E after the classification Mallampati Classification Grade 2 Sedation Plan Analgesia, Amnesia, Plan communicated to team members, Discussed options with patient/fam, Discussed risks with patient/fam The patient is an appropriate candidate to undergo the planned procedure, sedation, and anesthesia. The patient immediately re-assessed prior to indication. BHUMIKA ALMANZA MD Aug 14, 2018 09:49
[2018-08-14] MEDS ORDERED: LIDOCAINE JELLY 2% 6 ML SYRINGE ONE (10:10)
[2018-08-14] MEDS ORDERED: fentaNYL INJECTION 100 MCG/2 ML AMP ONE (10:11)
[2018-08-14] MEDS ORDERED: HURRICAINE EXT TUBE (BENZOCAINE) ONE (10:11)
[2018-08-14] MEDS ORDERED: MIDAZOLAM 2 MG/2 ML (VERSED) VIAL ONE ×2 (10:11)
[2018-08-14 11:00] VITALS: BP 144/68
[2018-08-14 11:34] VITALS: BP 147/70
[2018-08-14 11:39] VITALS: BP 147/70
--- NOTE | 2018-08-14 22:22 | OPERATIVE REPORT ---
DATE OF SERVICE: EGD SUMMARY INDICATION FOR THE PROCEDURE: Epigastric pain, nausea, vomiting with weight loss. The patient was placed in the left lateral decubitus position. The endoscope was inserted in the oral cavity and under direct visualization, the esophagus was intubated. The endoscope was passed down the esophagus through stomach and into the second portion of the duodenum. A careful inspection was made as the endoscope was withdrawn. The patient tolerated the procedure well. FINDINGS: The esophagus revealed no evidence of rings, webs, strictures, Otero's change or evidence for obstruction. There was no evidence for hiatal hernia formation. The Z line was distinct without evidence for esophagitis. The cardia, fundus and antrum of the stomach were unremarkable. The pylorus, pyloric channel, the duodenal bulb and second portion of duodenum were unremarkable as well. There was no evidence for obstruction. There was no evidence for retained food or fluid in the stomach, but it had been 18 hours since the patient last reported any p.o. intake. ASSESSMENT: Normal EGD. I took the liberty of setting the patient up for gallbladder ultrasound. If this is normal, would consider proceeding with HIDA scan with CCK. If there is no evidence for gallbladder pathology, would then consider gastric emptying time evaluation. I thank you for the referral of this pleasant lady. Job ID: [id number] DocumentID: [id number] Dictated Date: 08/14/2018 11:54:18 Residential Housekeeper Date: 08/14/2018 22:22:11 Dictated By: BHUMIKA ALMANZA MD [facility]
== END 2018-08-14 11:42 | disposition home or self-care (01) ==
LOC: ENDO 08:56
PROVIDERS: ATTEND Internal Medicine
DX: R10.13 Epigastric pain (principal); R11.2 Nausea with vomiting, unspecified; R63.4 Abnormal weight loss; I48.91 Unspecified atrial fibrillation; I10 Essential (primary) hypertension; I25.10 Atherosclerotic heart disease of native coronary artery without angina pectoris; Z79.01 Long term (current) use of anticoagulants; Z79.899 Other long term (current) drug therapy

== ENCOUNTER → 2018-08-21 | Outpatient (CLI) | payer MEDICARE ==
--- NOTE | 2018-08-21 11:07 | Diagnostic Imaging Report ---
INDICATION: Epigastric pain. TECHNIQUE: Multiple grayscale sonographic images were obtained of the right upper quadrant of the abdomen. CORRELATION STUDY: None FINDINGS: LIVER: There is uniform echotexture within the visualized portions of the liver. There is normal, hepatopedal direction of flow within the main portal vein. GALLBLADDER: The gallbladder demonstrates no definitive shadowing gallstones. No abnormal gallbladder wall thickening or pericholecystic fluid. COMMON BILE DUCT: Nondilated at 4 mm. PANCREAS: Visualized portions appearing unremarkable. RIGHT KIDNEY: Measures 9.3 x 5.1 x 5.1 cm. The inferior pole is somewhat obscured and limited in visualization. Right kidney is filling unremarkable in appearance. AORTA/IVC: Not well visualized. OTHER: None. IMPRESSION: 1. Negative appearing right upper quadrant abdominal ultrasound. Dictated by: Dictated on workstation # [id number]
== END ==
LOC: RAD 06:48
PROVIDERS: ATTEND Internal Medicine
DX: I10 Essential (primary) hypertension (principal); R10.13 Epigastric pain
CPT/HCPCS: 76705

== ENCOUNTER → 2018-08-26 | Outpatient (CLI) | payer MEDICARE ==
[~2018-08-26] MED LIST changes: +CATHETER FLUSH 10 ML SYR IV PRN
--- NOTE | 2018-08-26 14:25 | Diagnostic Imaging Report ---
INDICATION: Epigastric pain. TECHNIQUE: Patient was administered 5.3 mCi technetium-99m Choletec intravenously and imaging over the abdomen was performed. At one hour, patient ingested 8 ounces of Ensure and the gallbladder ejection fraction was calculated. FINDINGS: There is homogeneous uptake of activity by the liver. There is prompt excretion of activity into the common duct and gallbladder with normal passage into the small bowel. Gallbladder ejection fraction is abnormally low at 16%. Normal values are 33% or greater. IMPRESSION: 1. No evidence of cystic duct or common bile duct obstruction. 2. Low gallbladder ejection fraction of 16%. Dictated by: Dictated on workstation # [id number]
== END ==
LOC: CARD 11:39
PROVIDERS: ATTEND Internal Medicine
DX: R10.13 Epigastric pain (principal); R11.2 Nausea with vomiting, unspecified; K82.8 Other specified diseases of gallbladder
CPT/HCPCS: 78227

== ENCOUNTER 2018-09-07 11:55 | Outpatient (CLI) | payer MEDICARE ==
[~2018-09-07] VITALS: Ht 149.9 cm; Wt 62.1 kg
[~2018-09-07 11:55] MED LIST changes: -CATHETER FLUSH 10 ML SYR IV PRN
[2018-09-07 12:12] VITALS: BP 144/57
[2018-09-07 12:51] LABS: BASOPHILS % (AUTO) 0 % (0-10); EOSINOPHILS # (AUTO) 0.1 10^3/uL (0.0-0.3); EOSINOPHILS % (AUTO) 1 % (0-10); HEMATOCRIT 34 % (35-52); HEMOGLOBIN 11.3 G/DL (11.5-16.0); LYMPHOCYTES # (AUTO) 1.6 X 10^3 (1.0-4.0); LYMPHOCYTES % (AUTO) 16 % (12-44); MEAN CORPUSCULAR HEMOGLOBIN 27 PG (25-34); MEAN CORPUSCULAR HGB CONC 33 G/DL (32-36); MEAN CORPUSCULAR VOLUME 82 FL (80-99); MEAN PLATELET VOLUME 10.7 FL (7.4-10.4); MONOCYTES # (AUTO) 0.6 X 10^3 (0.0-1.0); MONOCYTES % (AUTO) 6 % (0-12); NEUTROPHILS # (AUTO) 7.7 X 10^3 (1.8-7.8); NEUTROPHILS % (AUTO) 76 % (42-75); PLATELET COUNT 279 10^3/uL (130-400); RED CELL DISTRIBUTION WIDTH 14.7 % (10.0-14.5)
[2018-09-07] MEDS ORDERED: APIX5TAB PO (12:54)
[2018-09-10] MEDS ORDERED: HYDR-34 PO (12:12)
== END 2018-09-07 12:55 | disposition home or self-care (01) ==
LOC: PREOP 11:55
PROVIDERS: ATTEND Surgery
DX: Z01.812 Encounter for preprocedural laboratory examination (principal); Z11.2 Encounter for screening for other bacterial diseases; K82.8 Other specified diseases of gallbladder
CPT/HCPCS: 36415; 85025; 87081

== ENCOUNTER 2018-09-10 10:28 | Day surgery (SDC) | payer MEDICARE ==
[~2018-09-10] VITALS: Ht 152.4 cm; Wt 60.8 kg
[2018-09-10 10:40] VITALS: BP 151/63
[2018-09-10] MEDS: LACTATED RINGERS 1,000 ML IV PRN ×2 (10:40→13:21)
[2018-09-10] MEDS ORDERED: ceFAZolin INJECTION 1,000 MG in WATER (STERILE) FOR INJECTION 10 ML IV ONE (11:00)
[2018-09-10] MEDS ORDERED: CATHETER FLUSH 10 ML SYR IV PRN (11:00)
--- OUTSIDE RECORDS SUMMARY | 2018-09-10 11:01 | XMS REPORT | Clinical Summary ---
Author Author [facility] Organization [facility] Address Unknown Phone Unavailable Care Team Providers Care Front Desk Associate Name Role Phone Hemant Masterson MD PCP Yesenia Paul RN Unavailable Unavailable Source Comments Some departments are not documenting in the electronic medical record. If you do not see the information that you expected, contact Release of Information in the Health Information Management department at [phone] for further assistance in locating additional records.[facility] Allergies Comments Active Allergy Reactions Severity Noted Date Morphine NAUSEA AND 05/04/2014 VOMITING Medications End Date Status Medication Sig Dispensed Refills Start Date Active amiodarone (CORDARONE) Take 200 mg 0 200 mg tablet by mouth daily. Decrease to 100mg on Friday, Friday, and Friday. All other days continue 200mg Active potassium chloride(+) Take 10 mEq 0 (MICRO-K) 10 mEq capsule by mouth daily. Active apixaban (ELIQUIS) 5 mg Take 5 mg by 0 tab tablet mouth twice daily. Active diltiazem SR (+) Take 120 mg 0 (CARDIZEM SR) 120 mg by mouth capsule twice daily. Active FLUoxetine(+) (PROZAC) 40 Take 40 mg by 0 mg capsule mouth daily. Active omeprazole DR(+) Take 40 mg by 0 (PRILOSEC) 40 mg capsule mouth daily. Active Problems Problem Noted Date HTN (hypertension) 05/07/2014 Last Assessment & Plan: Controlled with meds. Her Home BP reading are falseliy high probably due to cuff error. Atrial fibrillation 05/04/2014 Overview: 03/2014 - Admitted to hospital for newly dx AF with RVR, failed DCCV, Amiodarone intitiated, failed second DCCV. Plan to increase Amiodarone and repeat DCCV in one week. ([facility]) 04/26/2014 - DCCV: Successful cardioversion to terminate AF. ([facility]). 05/02/2014 - Stress Test: No ischemia or infarction on SPECT images. Small LV size with good contractility. EF=57%. Gated images are unreliable d/t underlying AF. ([facility]). 06/06/14 Afib ablation 01/01/16-per [facility] [place] [facility]--EKG SR (sent to scan). No [...] CHADSVASC score is high Continue Eliquis for penitentiary. TIA (transient ischemic attack) 05/04/2014 GI bleed 05/04/2014 Overview: History of multiple GI bleeds PUD (peptic ulcer disease) 05/04/2014 Chest pain 05/04/2014 DWYER (dyspnea on exertion) 05/04/2014 Depression 05/04/2014 Social History Date Tobacco Use Types Packs/Day Years Used Never Smoker Smokeless Tobacco: Never Used Alcohol Use Drinks/Week oz/Week Comments No Sex Assigned at Date Recorded Not on file Industry Job Start Date Occupation Not on file Not on file Not on file Travel End Travel History Travel Start No recent travel history available. 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 Oxygen Saturation 98% - Inhaled Oxygen - Concentration 02/13/2015 9:10 AM CDT Weight 65.5 kg (144 lb 6.4 oz) 02/13/2015 9:10 AM CDT Height 152.4 cm (5') 02/13/2015 9:10 AM CDT Body Mass Index 28.2 Plan of Treatment Health Maintenance Due Date Last Done Comments PHYSICAL (COMPREHENSIVE) 1947 EXAM DTAP/TDAP VACCINES (1 - 1957 Tdap) SHINGLES RECOMBINANT 1989 VACCINE (1 of 2) OSTEOPOROSIS 02/12/2004 SCREENING/MONITORING PNEUMONIA (PCV13/PPSV23) 02/12/2004 VACCINES (1 of 2 - PCV13) INFLUENZA VACCINE 01/14/2018 Results Not on filefrom Last 3 Months Insurance Type Payer Benefit Subscriber ID Effective Phone Address Plan / Dates Group Medicare HUMANA MEDICARE HUMANA xxxxxxxxx [id number] GROUP resent MEDICARE PPO Advance Directives Patient has advance care planning documents, and code status on file. For more information, please contact: [facility] [address] [place] [address] Date Inactivated Comments Code Status Date Activated 06/07/2014 12:09 PM Full Code 06/06/2014 6:05 AM Provider has discussed Code Status No, more discussion w/Patient or Family? needed
--- OUTSIDE RECORDS SUMMARY | 2018-09-10 11:02 | XMS REPORT | Continuity of Care Document ---
Author Author [facility] Organization [facility] Address Unknown Phone Unavailable Allergies Active Description Code Type Severity Reaction Onset Reported/Identified Relationship to Patient Clinical Status Yes morphine [id number] Drug Allergy Moderate NAUSEA 09/07/2018 Medications There is no data. Problems Date Dx Coded Attending Type Code [...] Ot 311 DEPRESSIVE DISORDER NEC 04/14/2014 JEFFY AC MD Ot 401.9 HYPERTENSION NOS 04/14/2014 JEFFY AC MD Ot 427.31 ATRIAL FIBRILLATION 04/14/2014 JEFYF AC MD Ot 530.81 ESOPHAGEAL REFLUX 04/14/2014 [...] RANJAN ALVAREZ Ot 786.09 05/09/2014 SOLA GIBSON DEPUTY JAILER Ot 427.31 05/30/2014 RANJAN ALVAREZ K Ot 272.4 05/30/2014 RANJAN ALVAREZ Ot 401.9 05/30/2014 RANJAN ALVAREZ Ot 427.31 05/30/2014 RANJAN ALVAREZ Ot 786.09 03/02/2015 OSORIO BAPTISTE, JEFFY Ellis Ot 272.4 03/02/2015 OSORIO BAPTISTE, JEFFY Ellis Ot 401.9 03/02/2015 OSORIO BAPTISTE, JEFFY Ellis Ot 427.31 03/02/2015 OSORIO BAPTISTE, JEFFY Ellis Ot 786.59 07/07/2015 SHYANNE BAPTISTE, JAMES Panda Ot Z12.31 07/19/2016 Ot V76.12 OTH SCREEN MAMMO-MALIGN NEOPLASM OF [place] 07/19/2016 SOLA GIBSON DEPUTY JAILER Ot 427.31 ATRIAL FIBRILLATION 07/19/2016 RANJAN ALVAREZ K Ot 272.4 HYPERLIPIDEMIA NEC/NOS 07/19/2016 TISHA ALVAREZTH K Ot 401.9 HYPERTENSION NOS 07/19/2016 TISHA ALVAREZTH K Ot 427.31 ATRIAL FIBRILLATION 07/19/2016 RANJAN ALVAREZ K Ot 786.09 RESPIRATORY ABNORM NEC 07/19/2016 OSORIO BAPTISTE, JEFFY J Ot 272.4 HYPERLIPIDEMIA NEC/NOS 07/19/2016 OSORIO BAPTISTE, JEFFY Ellis Ot 401.9 HYPERTENSION NOS 07/19/2016 OSORIO BAPTISTE, JEFFY J Ot 427.31 ATRIAL FIBRILLATION 07/19/2016 OSORIO BAPTISTE, JEFFY Ellis Ot 786.59 CHEST PAIN NEC 07/19/2016 SHYANNE BAPTISTE, JAMES Panda Ot Z12.31 ENCNTR SCREEN MAMMOGRAM FOR MALIGNANT NE 07/25/2016 Ot V76.12 OTH SCREEN MAMMO-MALIGN NEOPLASM OF [place] 07/25/2016 SOLA GIBSON DEPUTY JAILER Ot 427.31 ATRIAL FIBRILLATION 07/25/2016 RANJAN ALVAREZ K Ot 272.4 HYPERLIPIDEMIA NEC/NOS 07/25/2016 RANJAN ALVAREZ K Ot 401.9 HYPERTENSION NOS 07/25/2016 TISHA [...] Z12.31 ENCNTR SCREEN MAMMOGRAM FOR MALIGNANT NE 03/14/2017 JEFFY AC MD Ot E78.5 HYPERLIPIDEMIA, UNSPECIFIED 03/14/2017 JEFFY AC MD Ot I10 ESSENTIAL (PRIMARY) HYPERTENSION 03/14/2017 JEFFY AC MD Ot I48.91 UNSPECIFIED ATRIAL FIBRILLATION 03/14/2017 JEFFY AC MD Ot R06.02 SHORTNESS OF BREATH 03/14/2017 JEFFY AC MD Ot Z53.8 PROCEDURE AND TREATMENT NOT CARRIED OUT 03/18/2017 JEFFY AC MD Ot E78.5 HYPERLIPIDEMIA, UNSPECIFIED 03/18/2017 JEFFY AC MD Ot I10 ESSENTIAL (PRIMARY) HYPERTENSION 03/18/2017 JEFFY AC MD Ot I48.91 UNSPECIFIED ATRIAL FIBRILLATION 03/18/2017 JEFFY AC MD Ot R06.02 SHORTNESS OF BREATH 03/18/2017 JEFFY AC MD Ot Z53.8 PROCEDURE AND TREATMENT NOT CARRIED OUT 03/20/2017 BHUMIKA ALMANZA MD Ot 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 03/20/2017 BHUMIKA ALMANZA MD Ot Z01.818 ENCOUNTER FOR OTHER PREPROCEDURAL EXAMIN 03/20/2017 BHUMIKA ALMANZA MD Ot 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 03/20/2017 ARCHIE BAPTISTE, BHUMIKA Panda Ot Z01.818 ENCOUNTER FOR OTHER PREPROCEDURAL EXAMIN 03/20/2017 ARCHIE BAPTISTE, BHUMIKA Panda Ot 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 03/20/2017 ARCHIE BAPTISTE, BHUMIKA Panda Ot Z01.818 ENCOUNTER FOR OTHER PREPROCEDURAL EXAMIN 03/20/2017 ARCHIE BAPTISTE, BHUMIKA Panda Ot 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 03/20/2017 ARCHIE BAPTISTE, BHUMIKA Panda Ot Z01.818 ENCOUNTER FOR OTHER PREPROCEDURAL EXAMIN 03/21/2017 ARCHIE BAPTISTE, BHUMIKA Panda Ot I10 ESSENTIAL (PRIMARY) HYPERTENSION 03/21/2017 ARCHIE BAPTISTE, BHUMIKA Panda Ot I25.10 ATHSCL HEART DISEASE OF [place] CORONARY 03/21/2017 ARCHIE BAPTISTE, BHUMIKA Panda Ot I48.0 PAROXYSMAL ATRIAL FIBRILLATION 03/21/2017 ARCHIE BAPTISTE, BHUMIKA Panda Ot K21.9 GASTRO-ESOPHAGEAL REFLUX DISEASE WITHOUT 03/21/2017 ARCHIE BAPTISTE, BHUMIKA Panda Ot K44.9 DIAPHRAGMATIC HERNIA WITHOUT OBSTRUCTION 03/25/2017 ARCHIE BAPTISTE, BHUMIKA Panda Ot I10 ESSENTIAL (PRIMARY) HYPERTENSION 03/25/2017 ARCHIE BAPTISTE, BHUMIKA Panda Ot I25.10 ATHSCL HEART DISEASE OF [place] CORONARY 03/25/2017 ARCHIE BAPTISTE, BHUMIKA Panda Ot I48.0 PAROXYSMAL ATRIAL FIBRILLATION 03/25/2017 ARCHIE BAPTISTE, BHUMIKA Panda Ot K21.9 GASTRO-ESOPHAGEAL REFLUX DISEASE WITHOUT 03/25/2017 ARCHIE BAPTISTE, BHUMIKA Panda Ot K44.9 DIAPHRAGMATIC HERNIA WITHOUT OBSTRUCTION 03/25/2017 ARCHIE BAPTISTE, BHUMIKA Panda Ot I10 ESSENTIAL (PRIMARY) HYPERTENSION 03/25/2017 ARCHIE BAPTISTE, BHUMIKA Panda Ot I25.10 ATHSCL HEART DISEASE OF [place] CORONARY 03/25/2017 ARCHIE BAPTISTE, BHUMIKA Panda Ot I48.0 PAROXYSMAL ATRIAL FIBRILLATION 03/25/2017 ARCHIE BAPTISTE, BHUMIKA Panda Ot K21.9 GASTRO-ESOPHAGEAL REFLUX DISEASE WITHOUT 03/25/2017 ARCHIE BAPTISTE, BHUMIKA Panda Ot K44.9 DIAPHRAGMATIC HERNIA WITHOUT OBSTRUCTION 03/27/2017 ARCHIE BAPTISTE, BHUMIKA Panda Ot I10 ESSENTIAL (PRIMARY) HYPERTENSION 03/27/2017 ARCHIE BAPTISTE, BHUMIKA Panda Ot I25.10 ATHSCL HEART DISEASE OF [place] CORONARY 03/27/2017 ARCHIE BAPTISTE, BHUMIKA Panda Ot I48.0 PAROXYSMAL ATRIAL FIBRILLATION 03/27/2017 ARCHIE BAPTISTE, BHUMIKA Panda Ot K21.9 GASTRO-ESOPHAGEAL REFLUX DISEASE WITHOUT 03/27/2017 BHUMIKA ALMANZA MD Ot K44.9 DIAPHRAGMATIC HERNIA WITHOUT OBSTRUCTION 03/27/2017 JEFFY AC MD Ot E78.2 MIXED HYPERLIPIDEMIA 03/27/2017 JEFFY AC MD Ot I10 ESSENTIAL (PRIMARY) HYPERTENSION 03/27/2017 JEFFY AC MD Ot I48.0 PAROXYSMAL ATRIAL FIBRILLATION 03/27/2017 JEFFY AC MD Ot R06.09 OTHER FORMS OF DYSPNEA 03/27/2017 JEFFY AC MD Ot R07.9 CHEST PAIN, UNSPECIFIED 04/09/2017 JEFFY AC MD Ot E78.2 MIXED HYPERLIPIDEMIA 04/09/2017 JEFFY AC MD Ot I10 ESSENTIAL (PRIMARY) HYPERTENSION 04/09/2017 JEFFY AC MD Ot I48.0 PAROXYSMAL ATRIAL FIBRILLATION 04/09/2017 JEFFY AC MD Ot R06.09 OTHER FORMS OF DYSPNEA 04/09/2017 JEFFY AC MD Ot R07.9 CHEST PAIN, UNSPECIFIED 04/23/2017 JEFFY AC MD Ot E78.2 MIXED HYPERLIPIDEMIA 04/23/2017 JEFFY AC MD Ot I10 ESSENTIAL (PRIMARY) HYPERTENSION 04/23/2017 JEFFY AC MD Ot I48.0 PAROXYSMAL ATRIAL FIBRILLATION 04/23/2017 JEFFY AC MD Ot R06.09 OTHER FORMS OF DYSPNEA 04/23/2017 JEFFY AC MD Ot R07.9 CHEST PAIN, UNSPECIFIED 06/10/2017 SOLA GIBSON APRN Ot 427.31 ATRIAL FIBRILLATION 06/10/2017 RANJAN ALVAREZ Ot 272.4 HYPERLIPIDEMIA NEC/NOS 06/10/2017 RANJAN ALVAREZ Ot 401.9 HYPERTENSION NOS 06/10/2017 RANJAN ALVAREZ Ot 427.31 ATRIAL FIBRILLATION 06/10/2017 RANJAN ALVAREZ Ot 786.09 RESPIRATORY ABNORM NEC 06/10/2017 JEFFY AC MD Ot 272.4 HYPERLIPIDEMIA NEC/NOS 06/10/2017 JEFFY AC MD Ot 401.9 HYPERTENSION NOS 06/10/2017 JEFFY AC MD Ot 427.31 ATRIAL FIBRILLATION 06/10/2017 JEFFY AC MD Ot 786.59 CHEST PAIN NEC 06/10/2017 JAMES KIMBLE MD Ot Z12.31 ENCNTR SCREEN MAMMOGRAM FOR MALIGNANT NE 06/10/2017 JAMES KIMBLE MD Ot Z12.31 ENCNTR SCREEN MAMMOGRAM FOR MALIGNANT NE 06/10/2017 JEFFY AC MD Ot E78.5 HYPERLIPIDEMIA, UNSPECIFIED 06/10/2017 JEFFY AC MD Ot I10 ESSENTIAL (PRIMARY) HYPERTENSION 06/10/2017 JEFFY AC MD Ot I48.91 UNSPECIFIED ATRIAL FIBRILLATION 06/10/2017 JEFFY AC MD Ot R06.02 SHORTNESS OF BREATH 06/10/2017 JEFFY AC MD Ot Z53.8 PROCEDURE AND TREATMENT NOT CARRIED OUT 06/10/2017 JEFFY AC MD Ot E78.2 MIXED HYPERLIPIDEMIA 06/10/2017 JEFFY AC MD Ot I10 ESSENTIAL (PRIMARY) HYPERTENSION 06/10/2017 JEFFY AC MD Ot I48.0 PAROXYSMAL ATRIAL FIBRILLATION 06/10/2017 JEFFY AC MD Ot R06.09 OTHER FORMS OF DYSPNEA 06/10/2017 JEFFY AC MD Ot R07.9 CHEST PAIN, UNSPECIFIED 06/10/2017 JEFFY AC MD Ot E78.5 HYPERLIPIDEMIA, UNSPECIFIED 06/10/2017 JEFFY CA MD Ot I10 ESSENTIAL (PRIMARY) HYPERTENSION 06/10/2017 JEFFY AC MD Ot I48.91 UNSPECIFIED ATRIAL FIBRILLATION 06/10/2017 JEFFY AC MD Ot R06.02 SHORTNESS OF BREATH 06/10/2017 JEFFY AC MD Ot Z53.8 PROCEDURE AND TREATMENT NOT CARRIED OUT 06/10/2017 JEFFY AC MD Ot E78.2 MIXED HYPERLIPIDEMIA 06/10/2017 JEFFY AC MD Ot I10 ESSENTIAL (PRIMARY) HYPERTENSION 06/10/2017 JEFFY AC MD Ot I48.0 PAROXYSMAL ATRIAL FIBRILLATION 06/10/2017 JEFFY AC MD Ot R06.09 OTHER FORMS OF DYSPNEA 06/10/2017 JEFFY AC MD Ot R07.9 CHEST PAIN, UNSPECIFIED 07/01/2017 JEFFY AC MD Ot E78.5 HYPERLIPIDEMIA, UNSPECIFIED 07/01/2017 JEFFY AC MD Ot I10 ESSENTIAL (PRIMARY) HYPERTENSION 07/01/2017 JEFFY AC MD Ot I48.91 UNSPECIFIED ATRIAL FIBRILLATION 07/01/2017 JEFFY AC MD Ot R06.02 SHORTNESS OF BREATH 07/01/2017 JEFFY AC MD Ot Z53.8 PROCEDURE AND TREATMENT NOT CARRIED OUT 07/01/2017 JEFFY AC MD Ot E78.2 MIXED HYPERLIPIDEMIA 07/01/2017 JEFFY AC MD Ot I10 ESSENTIAL (PRIMARY) HYPERTENSION 07/01/2017 JEFFY AC MD Ot I48.0 PAROXYSMAL ATRIAL FIBRILLATION 07/01/2017 JEFFY AC MD Ot R06.09 OTHER FORMS OF DYSPNEA 07/01/2017 JEFFY AC MD Ot R07.9 CHEST PAIN, UNSPECIFIED 07/01/2017 SOLA GIBSON APRN Ot 427.31 ATRIAL FIBRILLATION 07/01/2017 RANJAN ALVAREZ Ot 272.4 HYPERLIPIDEMIA NEC/NOS 07/01/2017 RANJAN ALVAREZ Ot 401.9 HYPERTENSION NOS 07/01/2017 RANJAN ALVAREZ Ot 427.31 ATRIAL FIBRILLATION 07/01/2017 RANJAN ALVAREZ Ot 786.09 RESPIRATORY ABNORM NEC 07/01/2017 JEFFY AC MD Ot 272.4 HYPERLIPIDEMIA NEC/NOS 07/01/2017 JEFFY AC MD Ot 401.9 HYPERTENSION NOS 07/01/2017 EJFFY AC MD Ot 427.31 ATRIAL FIBRILLATION 07/01/2017 JEFFY AC MD Ot 786.59 CHEST PAIN NEC 07/01/2017 JAMES KIMBLE MD Ot Z12.31 ENCNTR SCREEN MAMMOGRAM FOR MALIGNANT NE 07/01/2017 JAMES KIMBLE MD Ot Z12.31 ENCNTR SCREEN MAMMOGRAM FOR MALIGNANT NE 07/01/2017 JEFFY AC MD Ot E78.5 HYPERLIPIDEMIA, UNSPECIFIED 07/01/2017 JEFYF AC MD Ot I10 ESSENTIAL (PRIMARY) HYPERTENSION 07/01/2017 JEFFY AC MD Ot I48.91 UNSPECIFIED ATRIAL FIBRILLATION 07/01/2017 JEFFY AC MD Ot R06.02 SHORTNESS OF BREATH 07/01/2017 JEFFY AC MD Ot Z53.8 PROCEDURE AND TREATMENT NOT CARRIED OUT 07/01/2017 JEFFY AC MD Ot E78.2 MIXED HYPERLIPIDEMIA 07/01/2017 JEFFY AC MD Ot I10 ESSENTIAL (PRIMARY) HYPERTENSION 07/01/2017 JEFFY AC MD Ot I48.0 PAROXYSMAL ATRIAL FIBRILLATION 07/01/2017 JEFFY AC MD Ot R06.09 OTHER FORMS OF DYSPNEA 07/01/2017 JEFFY AC MD Ot R07.9 CHEST PAIN, UNSPECIFIED 11/19/2017 SOLA GIBSON APRN Ot 427.31 ATRIAL FIBRILLATION 11/19/2017 RANJAN ALVAREZ Ot 272.4 HYPERLIPIDEMIA NEC/NOS 11/19/2017 RANJAN ALVAREZ Ot 401.9 HYPERTENSION NOS 11/19/2017 RANJAN ALVAREZ Ot 427.31 ATRIAL FIBRILLATION 11/19/2017 RANJAN ALVAREZ Ot 786.09 RESPIRATORY ABNORM NEC 11/19/2017 JEFFY AC MD Ot 272.4 HYPERLIPIDEMIA NEC/NOS 11/19/2017 JEFFY CA MD Ot 401.9 HYPERTENSION NOS 11/19/2017 JEFFY AC MD Ot 427.31 ATRIAL FIBRILLATION 11/19/2017 JEFFY AC MD Ot 786.59 CHEST PAIN NEC 11/19/2017 JAMES KIMBLE MD Ot Z12.31 ENCNTR SCREEN MAMMOGRAM FOR MALIGNANT NE 11/19/2017 JAMES KIMBLE MD Ot Z12.31 ENCNTR SCREEN MAMMOGRAM FOR MALIGNANT NE 11/19/2017 JEFFY AC MD Ot E78.5 HYPERLIPIDEMIA, UNSPECIFIED 11/19/2017 JEFFY AC MD Ot I10 ESSENTIAL (PRIMARY) HYPERTENSION 11/19/2017 JEFFY AC MD Ot I48.91 UNSPECIFIED ATRIAL FIBRILLATION 11/19/2017 JEFFY AC MD Ot R06.02 SHORTNESS OF BREATH 11/19/2017 JEFFY AC MD Ot Z53.8 PROCEDURE AND TREATMENT NOT CARRIED OUT 11/19/2017 JEFFY AC MD Ot E78.2 MIXED HYPERLIPIDEMIA 11/19/2017 JEFFY AC MD Ot I10 ESSENTIAL (PRIMARY) HYPERTENSION 11/19/2017 JEFFY AC MD Ot I48.0 PAROXYSMAL ATRIAL FIBRILLATION 11/19/2017 JEFFY AC MD Ot R06.09 OTHER FORMS OF DYSPNEA 11/19/2017 JEFFY AC MD Ot R07.9 CHEST PAIN, UNSPECIFIED 11/19/2017 SOLA GIBSON DEPUTY JAILER Ot Z12.31 ENCNTR SCREEN MAMMOGRAM FOR MALIGNANT NE 11/19/2017 ARTHUR SOLA R DEPUTY JAILER Ot Z12.31 ENCNTR SCREEN MAMMOGRAM FOR MALIGNANT NE 11/20/2017 ARTHUR SOLA R DEPUTY JAILER Ot Z12.31 ENCNTR SCREEN MAMMOGRAM FOR MALIGNANT NE 11/28/2017 ARTHURSOLA APRN Ot Z12.31 ENCNTR SCREEN MAMMOGRAM FOR MALIGNANT NE 05/19/2018 BUD YO APRN, Ot I10 ESSENTIAL (PRIMARY) HYPERTENSION 05/19/2018 BUD YO APRN Ot I48.91 UNSPECIFIED ATRIAL FIBRILLATION 05/19/2018 BUD YO APRN Ot K21.9 GASTRO-ESOPHAGEAL REFLUX DISEASE WITHOUT 05/19/2018 BUD YO APRN Ot S00.83XA CONTUSION OF OTHER PART OF HEAD, INITIAL 05/19/2018 BUD YO APRN, Ot S09.90XA UNSPECIFIED INJURY OF HEAD, INITIAL ENCO 05/19/2018 BUD YO APRN Ot W01.0XXA FALL SAME LEV FROM SLIP/TRIP W/O STRIKE 05/19/2018 BUD YO APRN Ot Y92.[address] OF OCCURRENCE O 05/19/2018 BUD YO APRN Ot Z23 ENCOUNTER FOR IMMUNIZATION 05/19/2018 BUD YO APRN Ot Z79.01 INDUSTRIAL SEWER (CURRENT) USE OF ANTICOAGULANT 05/19/2018 BUD YO APRN Ot Z82.49 FAMILY HX OF ISCHEM HEART DIS AND OTH DI 05/19/2018 BUD YO APRN, Ot Z87.19 PERSONAL HISTORY OF OTHER DISEASES OF TH 05/19/2018 BUD YO APRN Ot Z88.5 ALLERGY STATUS TO NARCOTIC AGENT STATUS 05/19/2018 BUD YO APRN Ot Z90.49 ACQUIRED ABSENCE OF OTHER SPECIFIED PART 05/19/2018 BUD YO APRN Ot Z90.710 ACQUIRED ABSENCE OF BOTH CERVIX AND UTER 05/21/2018 BUD YO APRN Ot I10 ESSENTIAL (PRIMARY) HYPERTENSION 05/21/2018 BUD YO APRN Ot I48.91 UNSPECIFIED ATRIAL FIBRILLATION 05/21/2018 BUD YO APRN Ot K21.9 GASTRO-ESOPHAGEAL REFLUX DISEASE WITHOUT 05/21/2018 BUD YO APRN Ot S00.83XA CONTUSION OF OTHER PART OF HEAD, INITIAL 05/21/2018 BUD YO APRN Ot S09.90XA UNSPECIFIED INJURY OF HEAD, INITIAL ENCO 05/21/2018 BUD YO APRN Ot W01.0XXA FALL SAME LEV FROM SLIP/TRIP W/O STRIKE 05/21/2018 BUD YO APRN Ot Y92.[address] OF OCCURRENCE O 05/21/2018 BUD YO APRN Ot Z23 ENCOUNTER FOR IMMUNIZATION 05/21/2018 BUD YO APRN Ot Z79.01 INDUSTRIAL SEWER (CURRENT) USE OF ANTICOAGULANT 05/21/2018 BUD YO APRN Ot Z82.49 FAMILY HX OF ISCHEM HEART DIS AND OTH DI 05/21/2018 BUD YO APRN Ot Z87.19 PERSONAL HISTORY OF OTHER DISEASES OF TH 05/21/2018 BUD YO APRN Ot Z88.5 ALLERGY STATUS TO NARCOTIC AGENT STATUS 05/21/2018 BUD YO APRN Ot Z90.49 ACQUIRED ABSENCE OF OTHER SPECIFIED PART 05/21/2018 BUD YO APRN Ot Z90.710 ACQUIRED ABSENCE OF BOTH CERVIX AND UTER 08/04/2018 SOLA GIBSON APRN Ot 427.31 ATRIAL FIBRILLATION 08/04/2018 RANJAN ALVAREZ Ot 272.4 HYPERLIPIDEMIA NEC/NOS 08/04/2018 RANJAN ALVAREZ Ot 401.9 HYPERTENSION NOS 08/04/2018 RANJAN ALVAREZ Ot 427.31 ATRIAL FIBRILLATION 08/04/2018 RANJAN ALVAREZ Ot 786.09 RESPIRATORY ABNORM NEC 08/04/2018 JEFFY AC MD Ot 272.4 HYPERLIPIDEMIA NEC/NOS 08/04/2018 JEFFY AC MD Ot 401.9 HYPERTENSION NOS 08/04/2018 JEFFY AC MD Ot 427.31 ATRIAL FIBRILLATION 08/04/2018 JEFFY AC MD Ot 786.59 CHEST PAIN NEC 08/04/2018 JAMES KIMBLE MD Ot Z12.31 ENCNTR SCREEN MAMMOGRAM FOR MALIGNANT NE 08/04/2018 JAMES KIMBLE MD Ot Z12.31 ENCNTR SCREEN MAMMOGRAM FOR MALIGNANT NE 08/04/2018 JEFFY AC MD Ot E78.5 HYPERLIPIDEMIA, UNSPECIFIED 08/04/2018 JEFFY AC MD Ot I10 ESSENTIAL (PRIMARY) HYPERTENSION 08/04/2018 JEFFY AC MD Ot I48.91 UNSPECIFIED ATRIAL FIBRILLATION 08/04/2018 JEFFY AC MD Ot R06.02 SHORTNESS OF BREATH 08/04/2018 JEFFY AC MD Ot Z53.8 PROCEDURE AND TREATMENT NOT CARRIED OUT 08/04/2018 JEFFY AC MD Ot E78.2 MIXED HYPERLIPIDEMIA 08/04/2018 JEFFY AC MD Ot I10 ESSENTIAL (PRIMARY) HYPERTENSION 08/04/2018 JEFFY AC MD Ot I48.0 PAROXYSMAL ATRIAL FIBRILLATION 08/04/2018 JEFFY AC MD Ot R06.09 OTHER FORMS OF DYSPNEA 08/04/2018 JEFFY AC MD Ot R07.9 CHEST PAIN, UNSPECIFIED 08/04/2018 SOLA GIBSON APRN Ot Z12.31 ENCNTR SCREEN MAMMOGRAM FOR MALIGNANT NE 08/06/2018 SOLA GIBSON APRN Ot 427.31 ATRIAL FIBRILLATION 08/06/2018 RANJAN ALVAREZ Ot 272.4 HYPERLIPIDEMIA NEC/NOS 08/06/2018 RANJAN ALVAREZ Ot 401.9 HYPERTENSION NOS 08/06/2018 RANJAN ALVAREZ Ot 427.31 ATRIAL FIBRILLATION 08/06/2018 RANJAN ALVAREZ Ot 786.09 RESPIRATORY ABNORM NEC 08/06/2018 JEFFY AC MD Ot 272.4 HYPERLIPIDEMIA NEC/NOS 08/06/2018 JEFFY AC MD Ot 401.9 HYPERTENSION NOS 08/06/2018 JEFFY AC MD Ot 427.31 ATRIAL FIBRILLATION 08/06/2018 JEFFY AC MD Ot 786.59 CHEST PAIN NEC 08/06/2018 JAMES KIMBLE MD Ot Z12.31 ENCNTR SCREEN MAMMOGRAM FOR MALIGNANT NE 08/06/2018 JAMES KIMBLE MD Ot Z12.31 ENCNTR SCREEN MAMMOGRAM FOR MALIGNANT NE 08/06/2018 JEFFY AC MD Ot E78.5 HYPERLIPIDEMIA, UNSPECIFIED 08/06/2018 JEFFY AC MD Ot I10 ESSENTIAL (PRIMARY) HYPERTENSION 08/06/2018 JEFFY AC MD Ot I48.91 UNSPECIFIED ATRIAL FIBRILLATION 08/06/2018 JEFFY AC MD Ot R06.02 SHORTNESS OF BREATH 08/06/2018 JEFFY AC MD Ot Z53.8 PROCEDURE AND TREATMENT NOT CARRIED OUT 08/06/2018 JEFFY AC MD Ot E78.2 MIXED HYPERLIPIDEMIA 08/06/2018 JEFFY AC MD Ot I10 ESSENTIAL (PRIMARY) HYPERTENSION 08/06/2018 JEFFY AC MD Ot I48.0 PAROXYSMAL ATRIAL FIBRILLATION 08/06/2018 JEFFY AC MD Ot R06.09 OTHER FORMS OF DYSPNEA 08/06/2018 JEFFY AC MD Ot R07.9 CHEST PAIN, UNSPECIFIED 08/06/2018 SOLA GIBSON APRN Ot Z12.31 ENCNTR SCREEN MAMMOGRAM FOR MALIGNANT NE 08/06/2018 JAMES KIMBLE MD Ot J98.4 OTHER DISORDERS OF LUNG 08/06/2018 JAMES KIMBLE MD Ot R94.5 ABNORMAL RESULTS OF LIVER FUNCTION STUDI 08/14/2018 BHUMIKA ALMANZA MD Ot I10 ESSENTIAL (PRIMARY) HYPERTENSION 08/14/2018 BHUMIKA ALMANZA MD Ot I25.10 ATHSCL HEART DISEASE OF [place] CORONARY 08/14/2018 BHUMIKA ALMANZA MD Ot I48.91 UNSPECIFIED ATRIAL FIBRILLATION 08/14/2018 BHUMIKA ALMANZA MD Ot R10.13 EPIGASTRIC PAIN 08/14/2018 BHUMIKA ALMANZA MD Ot R11.2 NAUSEA WITH VOMITING, UNSPECIFIED 08/14/2018 BHUMIKA ALMANZA MD Ot R63.4 ABNORMAL WEIGHT LOSS 08/14/2018 BHUMIKA ALMANZA MD Ot Z79.01 INDUSTRIAL SEWER (CURRENT) USE OF ANTICOAGULANT 08/14/2018 BHUMIKA ALMANZA MD Ot Z79.899 OTHER INDUSTRIAL SEWER (CURRENT) DRUG THERAPY 08/18/2018 BHUMIKA ALMANZA MD Ot I10 ESSENTIAL (PRIMARY) HYPERTENSION 08/18/2018 BHUMIKA ALMANZA MD Ot I25.10 ATHSCL HEART DISEASE OF [place] CORONARY 08/18/2018 BHUMIKA ALMANZA MD Ot I48.91 UNSPECIFIED ATRIAL FIBRILLATION 08/18/2018 BHUMIKA ALMANZA MD Ot R10.13 EPIGASTRIC PAIN 08/18/2018 BHUMIKA ALMANZA MD Ot R11.2 NAUSEA WITH VOMITING, UNSPECIFIED 08/18/2018 BHUMIKA ALMANZA MD Ot R63.4 ABNORMAL WEIGHT LOSS 08/18/2018 BHUMIKA ALMANZA MD Ot Z79.01 INDUSTRIAL SEWER (CURRENT) USE OF ANTICOAGULANT 08/18/2018 BHUMIKA ALMANZA MD, Ot Z79.899 OTHER [place] (CURRENT) DRUG THERAPY 08/23/2018 BHUMIKA ALMANZA MD Ot I10 ESSENTIAL (PRIMARY) HYPERTENSION 08/23/2018 BHUMIKA ALMANZA MD Ot R10.13 EPIGASTRIC PAIN 08/27/2018 BHUMIKA ALMANZA MD Ot K82.8 OTHER SPECIFIED DISEASES OF GALLBLADDER 08/27/2018 BHUMIKA ALMANZA MD Ot R10.13 EPIGASTRIC PAIN 08/27/2018 BHUMIKA ALMANZA MD Ot R11.2 NAUSEA WITH VOMITING, UNSPECIFIED 09/08/2018 ALYSON TATE MD Ot K82.8 OTHER SPECIFIED DISEASES OF GALLBLADDER 09/08/2018 ALYSON TATE MD Ot Z01.812 ENCOUNTER FOR PREPROCEDURAL LABORATORY E 09/08/2018 ALYSON TATE MD, Ot Z11.2 ENCOUNTER FOR SCREENING FOR OTHER BACTER Procedures Code Description Performed By Performed On 99.61 ATRIAL CARDIOVERSION 04/07/2014 37.79 REVISION OR RELOCATION OF CARDIAC DEVICE 04/13/2014 99.61 ATRIAL CARDIOVERSION 04/13/2014 Results Test Result Range Automated blood complete blood count (hemogram) panel - 03/05/17 09:29 Blood leukocytes automated count (number/volume) 9.5 10*3/uL 4.3-11.0 Blood erythrocytes automated count (number/volume) 4.56 10*6/uL 4.35-5.85 Venous blood hemoglobin measurement (mass/volume) 12.4 g/dL 11.5-16.0 Blood hematocrit (volume fraction) 37 % 35-52 Automated erythrocyte mean corpuscular volume 81 [foz_us] 80-99 Automated erythrocyte mean corpuscular hemoglobin (mass per erythrocyte) 27 pg 25-34 Automated erythrocyte mean corpuscular hemoglobin concentration measurement ( mass/volume) 34 g/dL 32-36 Automated erythrocyte distribution width ratio 14.1 % 10.0-14.5 Automated blood platelet count (count/volume) 306 10*3/uL 130-400 Automated blood platelet mean volume measurement 10.0 [foz_us] 7.4-10.4 Comprehensive metabolic panel - 03/05/17 09:29 Serum or plasma sodium measurement (moles/volume) 140 mmol/L 135-145 Serum or plasma potassium measurement (moles/volume) 3.7 mmol/L 3.6-5.0 Serum or plasma chloride measurement (moles/volume) 106 mmol/L 98-107 Carbon dioxide 23 mmol/L 21-32 Serum or plasma anion gap determination (moles/volume) 11 mmol/L 5-14 Serum or plasma urea nitrogen measurement (mass/volume) 9 mg/dL 7-18 Serum or plasma creatinine measurement (mass/volume) 0.72 mg/dL 0.60-1.30 Serum or plasma urea nitrogen/creatinine mass ratio 13 NRG Serum or plasma creatinine measurement with calculation of estimated glomerular filtration rate > NRG Serum or plasma glucose measurement (mass/volume) 109 mg/dL 70-105 Serum or plasma calcium measurement (mass/volume) 9.3 mg/dL 8.5-10.1 Serum or plasma total bilirubin measurement (mass/volume) 0.6 mg/dL 0.1-1.0 Serum or plasma alkaline phosphatase measurement (enzymatic activity/volume) 112 U/L 40-136 Serum or plasma aspartate aminotransferase measurement (enzymatic activity/ volume) 16 U/L 5-34 Serum or plasma alanine aminotransferase measurement (enzymatic activity/volume ) 14 U/L 0-55 Serum or plasma protein measurement (mass/volume) 7.3 g/dL 6.4-8.2 Serum or plasma albumin measurement (mass/volume) 4.1 g/dL 3.2-4.5 Complete blood count (CBC) with automated white blood cell (WBC) differential - 09/07/18 12:25 Blood leukocytes automated count (number/volume) 10.0 10*3/uL 4.3-11.0 Blood erythrocytes automated count (number/volume) 4.17 10*6/uL 4.35-5.85 Venous blood hemoglobin measurement (mass/volume) 11.3 g/dL 11.5-16.0 Blood hematocrit (volume fraction) 34 % 35-52 Automated erythrocyte mean corpuscular volume 82 [foz_us] 80-99 Automated erythrocyte mean corpuscular hemoglobin (mass per erythrocyte) 27 pg 25-34 Automated erythrocyte mean corpuscular hemoglobin concentration measurement ( mass/volume) 33 g/dL 32-36 Automated erythrocyte distribution width ratio 14.7 % 10.0-14.5 Automated blood platelet count (count/volume) 279 10*3/uL 130-400 Automated blood platelet mean volume measurement 10.7 [foz_us] 7.4-10.4 Automated blood neutrophils/100 leukocytes 76 % 42-75 Automated blood lymphocytes/100 leukocytes 16 % 12-44 Blood monocytes/100 leukocytes 6 % 0-12 Automated blood eosinophils/100 leukocytes 1 % 0-10 Automated blood basophils/100 leukocytes 0 % 0-10 Blood neutrophils automated count (number/volume) 7.7 10*3 1.8-7.8 Blood lymphocytes automated count (number/volume) 1.6 10*3 1.0-4.0 Blood monocytes automated count (number/volume) 0.6 10*3 0.0-1.0 Automated eosinophil count 0.1 10*3/uL 0.0-0.3 Automated blood basophil count (count/volume) 0.0 10*3/uL 0.0-0.1 Methicillin resistant Staphylococcus aureus (MRSA) screening culture - 12:25 Methicillin resistant Staphylococcus aureus (MRSA) screening culture NEG NRG Encounters ACCT No. Visit Date/Time Discharge Status Pt. Type Provider Facility Loc./Unit Complaint [id number] 09/07/2018 11:55:00 09/07/2018 12:55:00 DIS Outpatient ALYSON TATE MD [facility] PREOP BILIARY DYSKINESIA [id number] 08/26/2018 11:39:00 08/26/2018 23:59:59 CLS Outpatient BHUMIKA ALMANZA MD [facility] CARD EPIGASTRIC PAIN [id number] 08/21/2018 06:48:00 08/21/2018 23:59:59 CLS Outpatient BHUMIKA ALMANZA MD [facility] RAD EPIGASTRIC PAIN,HTN [id number] 08/14/2018 08:56:00 08/14/2018 11:42:00 DIS Outpatient BHUMIKA ALMANZA MD [facility] ENDO N V/ EPIGASTRIC PAIN [id number] 08/06/2018 10:30:00 08/06/2018 23:59:59 CLS Outpatient JAMES KIMBLE MD [facility] RAD ELEVATED LIVER ENZYMES [id number] 05/19/2018 20:36:00 05/19/2018 22:01:00 DIS Emergency YO BUD Caleb DEPUTY JAILER [facility] ER FALL, HEAD INJ [id number] 11/19/2017 09:25:00 11/19/2017 23:59:59 CLS Outpatient SOLA GIBSON DEPUTY JAILER [facility] RAD SCREENING [id number] 03/26/2017 08:10:00 03/26/2017 23:59:59 CLS Outpatient JEFFY AC MD [facility] CARD HTN I10 [id number] 03/21/2017 08:15:00 03/21/2017 11:30:00 DIS Outpatient BHUMIKA ALMANZA MD [facility] ENDO BARRETS ESOPHAGUS [id number] 03/20/2017 10:28:00 03/20/2017 10:31:00 DIS Outpatient BHUMIKA ALMANZA MD [facility] PREOP EGD [id number] 03/05/2017 08:34:00 03/05/2017 23:59:59 CLS Outpatient JEFFY AC MD [facility] CATH AFIB,SOB,HTN,HLP [id number] 07/25/2016 09:52:00 07/25/2016 23:59:59 CLS Outpatient JAMES KIMBLE MD [facility] RAD SCREENING [id number] 06/14/2015 10:22:00 06/14/2015 23:59:59 CLS Outpatient JAMES KIMBLE [facility] [place] [facility] SCREENING [id number] 02/09/2015 11:02:00 02/09/2015 23:59:59 CLS Outpatient JEFFY AC MD [facility] [place] LAB A-FIB,CP,HTN,FLP [id number] 05/09/2014 11:34:00 05/09/2014 12:57:00 DIS Emergency FRANK RIVERA DO [facility] [place] ER CHEST PAIN [id number] 05/02/2014 07:09:00 05/02/2014 23:59:59 CLS Outpatient RANJAN ALVAREZ [facility] [place] CARD AFIB [id number] 04/26/2014 10:15:00 04/27/2014 14:35:00 DIS Inpatient JEFFY AC MD [facility] [place] ICU A FIB [id number] 04/13/2014 09:33:00 04/14/2014 16:45:00 DIS Inpatient JEFFY AC MD [facility] [place] ICU AFIB [id number] 04/06/2014 17:33:00 04/08/2014 10:21:00 DIS Inpatient JAMES KIMBLE MD [facility] [place] ICU AFIB RVR [id number] 04/06/2014 15:57:00 04/06/2014 23:59:59 CLS Outpatient SOLA GIBSON APRN [facility] [place] CARD TACKACARDIA [id number] 09/10/2018 11:00:00 PEN Preadmit ALYSON TATE MD [facility] [place] SDC BILIARY DYSKINESIA [id number] 04/05/2011 14:12:00 Document Registration
[2018-09-10] MEDS ORDERED: proPOfol 200 MG/20 ML (DIPRIVAN) VIAL IV ONE (11:32)
[2018-09-10] MEDS ORDERED: GLYCOPYRROLATE 0.2 MG/ML (ROBINUL) 2 ML VIAL ONE ×2 (11:32→13:57)
[2018-09-10] MEDS ORDERED: fentaNYL INJECTION 100 MCG/2 ML AMP ONE (11:32)
[2018-09-10] MEDS ORDERED: NEOSTIGMINE 1 MG/ML 5 ML SYRINGE ONE (11:32)
[2018-09-10] MEDS ORDERED: ONDANSETRON 4 MG/2 ML (SDV) Z0FRAN ONE (11:32)
[2018-09-10] MEDS ORDERED: DEXAMETHASONE 10 MG/ML (DECADRON) 1 ML VIAL ONE (11:32)
[2018-09-10] MEDS ORDERED: LIDOCAINE PF 2% 5 ML (XYLOCAINE) VIAL ONE (11:32)
[2018-09-10] MEDS ORDERED: ROCURONIUM 10 MG/ML 5 ML SYRINGE IV ONE (11:32)
[2018-09-10] MEDS ORDERED: MIDAZOLAM 2 MG/2 ML (VERSED) VIAL ONE (11:33)
[2018-09-10] MEDS ORDERED: BUP/EPI 0.5% 1:200,000 (SENSORCAINE) 30 ML VIAL ONE (11:40)
--- NOTE | 2018-09-10 12:07 | Progress Note-Pre Operative ---
Pre-Operative Progress Note H&P Reviewed The H&P was reviewed, patient examined and no changes noted. Date Seen by Provider: Sep 10, 2018 Time Seen by Provider: 12:00 Date H&P Reviewed: Sep 10, 2018 Time H&P Reviewed: 12:00 Pre-Operative Diagnosis: symptomatic biliary dyskinesia ALYSON TATE MD Sep 10, 2018 12:07
[2018-09-10] MEDS ORDERED: HYDR-34 PO (12:12)
--- NOTE | 2018-09-10 12:14 | Discharge Inst-Surgical ---
D/C Lap Instructions-BEBETO New, Converted, or Re-Newed RX: RX on Chart Follow Up Appt in 2 weeks Activity as tolerated No driving for 24 hours No driving while on pain medications Incentive Spirometry use every 2 hours while awake Regular Diet Symptoms to Report: Fever over 101 degree F, Nausea/Vomiting Infection Signs and Symptoms to report: Increased redness, Foul odor of wound, Increased drainage Bathing instructions: May shower Operative Area Clean/Dry; Keep incision clean/dry If any problems/questions: Contact your physician or go to Emergency Room ALYSON TATE MD Sep 10, 2018 12:14
[2018-09-10] MEDS ORDERED: ACETAMINOPHEN 325 MG TABLET PO PRN (12:15)
[2018-09-10] MEDS ORDERED: fentaNYL INJECTION 100 MCG/2 ML AMP IVP PRN (12:15)
[2018-09-10] MEDS ORDERED: oxyCODONE/APAP 5/325MG (PERCOCET 5) TABLET PO PRN (12:15)
[2018-09-10] MEDS ORDERED: ONDANSETRON 4 MG/2 ML (SDV) Z0FRAN IVP PRN ×2 (12:15→14:30)
[2018-09-10] MEDS ORDERED: SEVOFLURANE (ULTANE) 15 ML INHAL SOLN ONE ×4 (13:58→14:02)
[2018-09-10] MEDS ORDERED: fentaNYL INJECTION 100 MCG/2 ML AMP IVP ONE (14:30)
--- NOTE | 2018-09-10 14:43 | Anesthesia-General Post-Op ---
General Patient Condition Mental Status/LOC: Same as Preop Cardiovascular: Satisfactory Nausea/Vomiting: Absent Respiratory: Satisfactory Pain: Controlled Complications: Absent Post Op Complications Complications None Follow Up Care/Instructions Patient Instructions None needed. Anesthesia/Patient Condition Patient Condition Patient is doing well, no complaints, stable vital signs, no apparent adverse anesthesia problems. ADAM PRETTY DO Sep 10, 2018 14:43
[2018-09-10 15:25] VITALS: BP 141/58
[2018-09-10 15:55] VITALS: BP 126/78
--- NOTE | 2018-09-10 16:05 | NUR ---
REPORT GIVEN & PT CARE TRANSFERRED TO JOSE DUCKWORTH, PT RESTING QUIETLY WITH FAMILY AT BEDSIDE.
[2018-09-10 16:25] VITALS: BP 113/72
[2018-09-10 16:45] VITALS: BP 113/72
--- NOTE | 2018-09-16 15:48 | OPERATIVE REPORT ---
DATE OF SERVICE: 09/10/2018 PREOPERATIVE DIAGNOSIS: Symptomatic biliary dyskinesia. POSTOPERATIVE DIAGNOSIS: Symptomatic biliary dyskinesia with cholesterolosis. PROCEDURE: Laparoscopic cholecystectomy. SURGEON: Alyson Tate MD ENERGY ENGINEER: Chai Oneill APRN. ANESTHESIA: General endotracheal. ESTIMATED BLOOD LOSS: Minimal. FINDINGS: Distended gallbladder with mild gallbladder wall thickening as well as cholesterolosis. DISPOSITION: The patient tolerated the procedure well. The patient is a 78-year-old female who has had abdominal bloating, early satiety as well as right upper abdominal quadrant pain. She states that this has been going on for several months; however, has become more frequent as well as more severe. She underwent an ultrasound of the gallbladder, which did not show any gallstones; however, a HIDA scan did show a very low ejection fraction of 16% as well as reproduction of symptoms after the administration of a Kinevac analogue consistent with a biliary dyskinesia. DESCRIPTION OF PROCEDURE: The patient was brought to the operating room, laid supine on the table. After adequate IV pain and sedative medications and general endotracheal intubation, the abdomen was prepped and draped in standard surgical fashion. A 0.5% Marcaine with epinephrine was used to anesthetize the overlying skin in the left upper abdominal quadrant and a transverse skin incision made using a 15 blade. An 0 silk suture was applied to the medial aspect of the incision for retraction and a Veress needle inserted with a low opening pressure of 0 mmHg and the abdomen was then insufflated to 15 mmHg pressure. The Veress needle removed and a 5 mm Xcel trocar placed followed by a 5 mm 45-degree angle laparoscope visualizing the peritoneal cavity. A 4-quadrant abdominal exploration was performed. The gallbladder was slightly distended. What was visualized the liver, omentum, stomach, small bowel appeared normal. Under direct visualization, we then proceeded to place a supraumbilical 10 mm port after the skin and peritoneal lining were anesthetized using 0.5% Marcaine with epinephrine and a transverse skin incision made using a 15 blade. In a similar manner, a right upper abdominal quadrant 5 mm port was placed. The patient was then placed in reverse Trendelenburg position as well as plane right side up, left side down. The fundus of the gallbladder was then retracted anteriorly and superiorly. The hepatoduodenal ligament was then opened using blunt dissection as well as electrocautery and the hook instrument. The entire critical view of safety was identified including the triangle of Calot as well as the cystic duct and artery as the only two structures going into the gallbladder as well as the cystic plate behind the proximal gallbladder. A timeout was then taken and the cystic duct and artery were then clipped proximally, distally and cut with EndoShears. The gallbladder was then dissected off the liver bed using cautery and the hook instrument with visualization of good hemostasis as well as no leaking ducts of Luschka. The gallbladder was removed through the 10 mm port site using an EndoCatch bag. The 10 mm port site fascia and peritoneum were then closed under direct visualization using a Dean-Trey device and 0 Vicryl suture. The abdomen was desufflated and remaining ports removed. All skin incisions were closed using 4-0 Monocryl running subcuticular sutures. Wounds were then cleaned and covered with Dermabond. The patient tolerated the procedure well. We will start IV normal pain medication as well as a clear liquid diet. When she is tolerating clears, has good pain control with oral pain medications, ambulating well, we will discharge her home. She will be instructed to do no heavy lifting or exertion for the next two weeks. Job ID: [id number] DocumentID: [id number] Dictated Date: 09/16/2018 15:25:22 Soft Boarder Date: 09/16/2018 15:48:02 Dictated By: ALYSON TATE MD [facility]ITAL[facility]maril[facility]
== END 2018-09-10 16:45 | disposition home or self-care (01) ==
LOC: SDC 10:28
PROVIDERS: ATTEND Surgery
DX: K81.1 Chronic cholecystitis (principal); I10 Essential (primary) hypertension; E78.5 Hyperlipidemia, unspecified; F41.9 Anxiety disorder, unspecified; I48.0 Paroxysmal atrial fibrillation; F32.9 Major depressive disorder, single episode, unspecified; I08.1 Rheumatic disorders of both mitral and tricuspid valves; E78.1 Pure hyperglyceridemia; K21.9 Gastro-esophageal reflux disease without esophagitis; Z86.73 Personal history of transient ischemic attack (TIA), and cerebral infarction without residual deficits; Z79.01 Long term (current) use of anticoagulants; Z79.899 Other long term (current) drug therapy
CPT/HCPCS: 88304

== ENCOUNTER → 2018-11-25 | Outpatient (CLI) | payer MEDICARE ==
[~2018-11-25] MED LIST changes: +HYDR-34 PO
--- NOTE | 2018-11-25 18:46 | Diagnostic Imaging Report ---
EXAMINATION: Digital mammogram bilateral screening. The current study was also evaluated with a Computer Aided Detection (CAD) system. 3-D tomosynthesis was also performed and reviewed. INDICATION: Screening. This study was compared to the prior exams of 11/19/2017, 07/25/2016, and 06/14/2015. At this time, there are no current complaints. FINDINGS: The fibroglandular tissue in both breasts is heterogeneously dense. This does limit the sensitivity of this exam. Overall, there does not appear to have been any significant change when compared to the prior study. No primary or secondary sign of malignancy is noted. 3D tomographic images fail to show any sign of malignancy. The loop recorder device overlying the medial aspect of the left breast seen on the prior study is again evident and no different. IMPRESSION: There is no radiographic evidence for malignancy. ACR BI-RADS Category 1: Negative. Result letter will be mailed to the patient. Note: At least 10% of breast cancer is not imaged by mammography. Dictated by: Dictated on workstation # [id number]
== END ==
LOC: RAD 10:08
PROVIDERS: ATTEND Internal Medicine
DX: Z12.31 Encounter for screening mammogram for malignant neoplasm of breast (principal)
CPT/HCPCS: 77067

== ENCOUNTER 2020-02-24 12:00 | Day surgery (SDC) | payer MEDICARE ==
[2020-02-24] VITALS (18 sets, daily range): BP systolic 92–124; BP diastolic 39–82
[~2020-02-24] VITALS: Ht 152 cm; Wt 58.5 kg
[2020-02-24 10:34] LABS: HEMOGLOBIN 10.6 G/DL (11.5-16.0); MEAN PLATELET VOLUME 10.3 FL (7.4-10.4); WHITE BLOOD COUNT 10.5 10^3/uL (4.3-11.0)
[2020-02-24 11:00] LABS: INR 1.3 (0.8-1.4)
[2020-02-24 11:06] LABS: ALANINE AMINOTRANSFERASE 12 U/L (0-55); ALBUMIN 3.8 GM/DL (3.2-4.5); ALKALINE PHOSPHATASE 71 U/L (40-136); BILIRUBIN,TOTAL 0.3 MG/DL (0.1-1.0); BUN/CREATININE RATIO 18; CALCIUM 8.8 MG/DL (8.5-10.1); CARBON DIOXIDE 25 MMOL/L (21-32); CHLORIDE 108 MMOL/L (98-107); CHOLESTEROL 166 MG/DL (< 200); CREATININE SERUM 0.71 MG/DL (0.60-1.30); GFR ESTIMATED > 60; GLUCOSE 100 MG/DL (70-105); HDL CHOLESTEROL 45 MG/DL (40-60); POTASSIUM 4.1 MMOL/L (3.6-5.0); SODIUM 139 MMOL/L (135-145); TOTAL PROTEIN 6.9 GM/DL (6.4-8.2); TRIGLYCERIDES 76 MG/DL (<150); VLDL CHOLESTEROL 15 MG/DL (5-40)
[~2020-02-24 12:00] MED LIST changes: +DILT-27 PO; +HEParin (CATH LAB) 2,000 ML IV ONE; +ISOPROTERENOL 0.2 MG/D5W 50 ML IV ONE; +LIDOCAINE 1% INJ 20 ML 20 ML VIAL ONE; -METO-387 PO; +MTP25TSR PO; +NS IV 1000 ML 1,000 ML IV SCH; +NS IV 1000 ML 1,000 ML ONE; +OMEP40CA27 PO; +PHENYLEPHRINE 100 MCG/ML 10 ML (ANESTHESIA) SYR ONE; +ROCURONIUM 10 MG/ML 5 ML SYRINGE IV ONE; +fentaNYL INJECTION 100 MCG/2 ML AMP ONE; +proPOfol 200 MG/20 ML (DIPRIVAN) VIAL IV ONE
[2020-02-24] MEDS ORDERED: ONDANSETRON 4 MG/2 ML (SDV) Z0FRAN ONE (12:16)
--- NOTE | 2020-02-24 12:17 | Electrophysiology Procedure ---
EP Procedure typical atrial flutter ablation operative report. DATE OF SERVICE:02/24/20 CARDIAC CERTIFIED APPLIANCE SERVICE TECHNICIAN: Rubens Bain MD, [facility] INDICATION: typical atrial flutter, persistent atrial fibrillation PREOPERATIVE DIAGNOSIS:typical atrial flutter, persistent atrial fibrillation POSTOPERATIVE DIAGNOSES: successful typical atrial flutter ablation HISTORY: this is a 80-year-old lady with persistent atrial fibrillation. Typical atrial flutter was also noted with degenerated into atrial fibrillation. The patient is planned for comprehensive EP study and ablation. PROCEDURE PERFORMED: 1. Comprehensive EP study with induction. 2. Fluoroscopy. 3. left atrial pacing and recording. 4. Drug infusion. 5. Ablation of typical atrial flutter. 6. Comprehensive 3D mapping with the carto system. 7. Direct external electrical cardioversion COMPLICATION: None. ESTIMATED BLOOD LOSS: 10 mL. CONTRAST USED: None. FLUOROSCOPY TIME: 0.5 minutes. FLUOROSCOPY DOSE: 3 mgy. SPECIMENS: None. ANESTHESIA: Done by our anesthesia colleagues. ANTICOAGULATION: uninterrupted oral anti-coagulation. PROCEDURE IN DETAIL: After informed consent was taken, the patient was brought to the EP lab. Anesthesia was provided by our anesthesia colleagues. The patient was draped and prepped in the usual sterile fashion. The patient presented to the EP lab in atrial fibrillation rhythm.the patient is on uninterrupted oral anticoagulation. External cardioversion with 200 J converted the patient to sinus rhythm. Access was gained in the right femoral vein with a 6-Lebanese and an 8-Lebanese sheath. High right atrial catheter was an ablation catheter and the CS catheter were also placed. A comprehensive EP study was done including left atrial pacing and recording. Typical atrial flutter was not induced with rapid atrial pacing with and without Isuprel infusion. A 3D electroanatomic mapping was donewith the carto system. Ablation was performed in the cavotricuspid isthmus.CS pacing and pacing from the ablation catheter at different positions on the lateral side of the ablation line were used to verify bidirectional block. We then waited for 30 minutes and rechecked and confirmed bidirectional block.Isuprel was given post-procedure, however, we could not induce atrial flutter.The patienttolerated the procedure well and did not have any complication. The patientleft the lab in sinus rhythm. Total ablation time was 4 minutes and 18 seconds. MEASUREMENTS/EP STUDY: AA interval 1221 ms, AH interval 81 ms, AK interval 133 ms, HV interval 39 ms, QT interval 360 ms, QRS duration 72 ms, RR interval 1211 ms, Left atrial pacing and recording did not demonstrate left lateral bypass AV Wenckebach at cycle length 410 ms, No retrograde conduction when pacing from at 600 ms, Atrial ERP was 600/350 ms, Isuprel infusion: AV Wenckebach 410 ms, Atrial ERP 550/210 ms, No tachycardia was induced with rapid atrial pacing with the without isuprel. PLAN: The patient will be observed overnight and will be discharged home tomorrow with precise followup instructions. Rubens Bain MD, [facility] Cardiac Electrophysiology Melany BAIN MD Feb 24, 2020 12:17
[2020-02-24] MEDS ORDERED: GLYCOPYRROLATE 0.2 MG/ML (ROBINUL) 2 ML VIAL ONE (12:20)
[2020-02-24] MEDS ORDERED: NEOSTIGMINE 3 MG/3 ML VIAL ONE (12:20)
[2020-02-24] MEDS ORDERED: PATIENT MAY USE OWN MEDS, ALL PO SCH (12:30)
[2020-02-24] MEDS ORDERED: SEVOFLURANE (ULTANE) 15 ML INHAL SOLN ONE (12:36)
[2020-02-24] MEDS ORDERED: ONDANSETRON 4 MG/2 ML (SDV) Z0FRAN IVP PRN (13:00)
[2020-02-24] MEDS ORDERED: HYDROmorphone 2 MG/ML VIAL (DILAUDID) IV ONE (13:00)
[2020-02-24] MEDS: APIXABAN 5 MG (ELIQUIS) TABLET PO SCH (20:28)
[2020-02-24] MEDS: NS IV 1000 ML 1,000 ML IV SCH ×2 (21:17→22:48)
[2020-02-25] VITALS: BP 143/71
[2020-02-25 03:06] VITALS: BP 167/93
[2020-02-25 03:59] LABS: HEMOGLOBIN 8.9 G/DL (11.5-16.0); MEAN PLATELET VOLUME 10.5 FL (7.4-10.4); WHITE BLOOD COUNT 5.5 10^3/uL (4.3-11.0)
[2020-02-25 04:14] LABS: CHLORIDE 110 MMOL/L (98-107); POTASSIUM 4.4 MMOL/L (3.6-5.0); SODIUM 139 MMOL/L (135-145)
[2020-02-25 04:15] LABS: CALCIUM 8.6 MG/DL (8.5-10.1); GLUCOSE 124 MG/DL (70-105)
[2020-02-25 04:17] LABS: CARBON DIOXIDE 20 MMOL/L (21-32)
[2020-02-25 04:19] LABS: CREATININE SERUM 0.62 MG/DL (0.60-1.30); GFR ESTIMATED > 60
[2020-02-25 04:20] LABS: BUN/CREATININE RATIO 16
--- NOTE | 2020-02-25 07:01 | Anesthesia-General Post-Op ---
General Patient Condition Mental Status/LOC: Same as Preop Cardiovascular: Satisfactory Nausea/Vomiting: Absent Respiratory: Satisfactory Pain: Controlled Complications: Absent Post Op Complications Complications None Follow Up Care/Instructions Patient Instructions None needed. Anesthesia/Patient Condition Patient Condition Patient is doing well, no complaints, stable vital signs, no apparent adverse anesthesia problems. No complications reported per nursing. D/C home per [facility] Criteria: Yes MELISSA KAUFMAN CRNA Feb 25, 2020 07:01
[2020-02-25 08:00] VITALS: BP 171/80
[2020-02-25] MEDS: APIXABAN 5 MG (ELIQUIS) TABLET PO SCH (08:16)
[2020-02-25] MEDS: NS IV 1000 ML 1,000 ML IV SCH (08:29)
--- NOTE | 2020-02-25 11:14 | Cardiology Discharge Summary ---
Diagnosis/Chief Complaint Date of Admission 02/24/2020 Date of Discharge 02/25/2020 Admission Diagnosis Typical atrial flutter, persistent atrial fibrillation Final/Discharge Diagnosis Typical atrial flutter, successful ablation, Persistent atrial fibrillation, successful cardioversion Chief Complaint/HPI Chief Complaint/HPI This is a 80-year-old lady with persistent atrial fibrillation. Typical atrial flutter. Discharge Summary Procedures Successful typical atrial flutter ablation. Patient presented in persistent atrial fibrillation, successful cardioversion. Discharge Physical Examination Normal cardiovascular examination Hospital Course Was the Problem List Reviewed?: Yes Unremarkable. Discussion & Recommendations Discussion Discharge took over 30 minutes to complete. Discharge instructions were discussed at length with the patient. The procedure was also discussed at length with the patient. All restrictions were discussed. Patient will be discharged on the same medications and follow-up in a couple of weeks. Follow up appt.: Dr. Bain in 2 weeks. Dicharge Diet: Cardiac Diet Activity as Tolerated: Yes Home Medications Reviewed patient Home Medication Reconciliation performed by pharmacy medication reconciliations library cataloging technician and/or nursing. Patients Allergies have been reviewed. Discharge Home Medications: Reviewed and agree with Discharge Medication list on patient's Discharge Instruction sheet Condition at discharge Stable. Instructions to patient/family Discussed with the patient and family. Clinical Quality Measures DVT/VTE Risk/Contraindication: Risk Factor Score Per Nursin RFS Level Per Nursing on Admit: 2=Moderate Melany BAIN MD Feb 25, 2020 11:14
--- NOTE | 2020-02-25 11:16 | Discharge Inst-Post CATH ---
Discharge Inst-CATH/EP Problems Reviewed?: Yes Final Diagnosis Typical atrial flutter, Successful ablation Post Cardiac Cath/EP D/C Inst Follow Up/Plan Follow up with Dr Bain 2 weeks <b>CARDIAC CATH/EP PROCEDURE DISCHARGE INSTRUCTIONS</b> ACTIVITY * Go Home directly and rest. * Limit activity of the leg (or wrist if it was used) for 7 days including aerobics, swimming, jogging, bicycling, etc. * Restrict stair-climbing for 7 days if possible, if not, climb up with your non-cath leg, then bring together on the same step. * Avoid lifting, pushing, pulling or excessive movement of the affected extremity for 7 days. * Customary sexual activity may be resumed after 2 days-use caution not to use a position that strains or causes pain to the affected extremity. * No driving for 24 hours. * NO SMOKING. * Avoid straining for bowel movements for 7 days. * Gentle walking on level ground is allowed. * Returning to work will depend on the type of procedure and the results. Your doctor will discuss this with you. CALL YOUR DOCTOR FOR ANY OF THE FOLLOWING: *If bleeding from the puncture site occurs- Apply gentle pressure to site with clean cloth and call your doctor or EMS. * If a knot or lump forms under the skin, increases in size, or causes pain. * If bruising appears to be worsening or moving further down your leg instead of disappearing. * Temperature above 101 F. CARE OF YOUR GROIN INCISION; * Bruising or purple discoloration of the skin near the puncture site is common. * You may shower only, no bathtub bathing for 5 days. Be careful to avoid slipping as your leg may feel stiff. * If a closure device was used on your femoral artery, please see the attached guide regarding care of the device and your leg. * Leave dressing on FOR 24 hours. CARE OF YOUR WRIST INCISION; * Bruising or purple discoloration of the skin near the puncture site is common. * You may shower. * DO NOT submerge wrist. * Leave dressing on FOR 24 hours. Melany BAIN MD Feb 25, 2020 11:16 am
== END 2020-02-25 12:05 | disposition home or self-care (01) ==
LOC: CATH 12:00 → CSD 14:18 → CATH 02-25 12:05
PROVIDERS: ATTEND Internal Medicine Interventional Cardiology
DX: I48.3 Typical atrial flutter (principal); I48.19 Other persistent atrial fibrillation; I10 Essential (primary) hypertension; F32.9 Major depressive disorder, single episode, unspecified; F41.9 Anxiety disorder, unspecified; K21.9 Gastro-esophageal reflux disease without esophagitis; Z86.73 Personal history of transient ischemic attack (TIA), and cerebral infarction without residual deficits; Z79.899 Other long term (current) drug therapy; Z88.5 Allergy status to narcotic agent
CPT/HCPCS: 80048; 80053; 80061; 85027 ×2; 85610; 85730; 87081; 92960; 93005 ×2; 93613; 93653; C1730; C1732; C1894 ×2; 36415

== ENCOUNTER → 2020-09-07 | Outpatient (CLI) | payer MEDICARE ==
[~2020-09-07] MED LIST changes: -AMIO200T4 PO; +AMIO200T6 PO; -HEParin (CATH LAB) 2,000 ML IV ONE; -ISOPROTERENOL 0.2 MG/D5W 50 ML IV ONE; -LIDOCAINE 1% INJ 20 ML 20 ML VIAL ONE; -NS IV 1000 ML 1,000 ML IV SCH; -NS IV 1000 ML 1,000 ML ONE; -PHENYLEPHRINE 100 MCG/ML 10 ML (ANESTHESIA) SYR ONE; -ROCURONIUM 10 MG/ML 5 ML SYRINGE IV ONE; -fentaNYL INJECTION 100 MCG/2 ML AMP ONE; -proPOfol 200 MG/20 ML (DIPRIVAN) VIAL IV ONE
--- NOTE | 2020-09-08 08:24 | Diagnostic Imaging Report ---
EXAM: Digital mammogram bilateral screening COMPARISON: This study was compared to the prior exams of 11/25/2018, 12/01 and 07/25/2016. At this time there are no current complaints. The fibroglandular tissue in both breasts is heterogeneously dense. This does limit the sensitivity of this exam. Overall, there does not appear to have been any significant change since the prior studies. There is no primary or secondary sign of malignancy noted. The loop recorder device in the medial aspect of the left breast seen previously is again evident and no different. IMPRESSION: There is no evidence of malignancy. ACR BI-RADS Category 1: Negative. Result letter will be mailed to the patient. Note: At least 10% of breast cancer is not imaged by mammography. Dictated by: Dictated on workstation # [id number]
== END ==
LOC: RAD 15:15
PROVIDERS: ATTEND Internal Medicine
DX: Z12.31 Encounter for screening mammogram for malignant neoplasm of breast (principal)
CPT/HCPCS: 77063; 77067

== ENCOUNTER 2020-09-12 09:56 | Outpatient (RCR) | payer MEDICARE ==
[2020-09-05] MEDS: FERRIC CARBOXYMALTOSE INJ 750 MG in NS (IVPB) 250 ML IV SCH (10:23)
[2020-09-05 11:10] VITALS: BP 121/99
[~2020-09-12] VITALS: Ht 152 cm; Wt 58.5 kg
[2020-09-12 10:00] VITALS: BP 126/77
[2020-09-12] MEDS: FERRIC CARBOXYMALTOSE INJ 750 MG in NS (IVPB) 250 ML IV SCH (10:12)
== END 2020-09-12 10:35 | disposition home or self-care (01) ==
LOC: SDC 09:56
PROVIDERS: ATTEND Internal Medicine
DX: D50.9 Iron deficiency anemia, unspecified (principal)
CPT/HCPCS: 96365

== ENCOUNTER → 2021-09-13 | Outpatient (CLI) | payer MEDICARE ==
[~2021-09-13] MED LIST changes: -AMIO200T6 PO; +AMIO200T65 PO; -OMEP40CA27 PO; +OMEP40CA6 PO
--- NOTE | 2021-09-13 12:21 | Diagnostic Imaging Report ---
Indication: Routine screening. Comparison is made with prior mammograms 09/07/2020 and 11/25/2018. 2-D and 3-D bilateral screening mammography was performed CAD. Both breasts are heterogeneously dense, limiting the sensitivity of mammography. The parenchymal pattern is stable. No mass or malignant-appearing microcalcifications are seen. Cardiac loop recorder is noted in the soft tissues of the medial left breast. Axillae are unremarkable. IMPRESSION: BI-RADS Category 2 No mammographic features suspicious for malignancy are identified. ACR BI-RADS Category 2: Benign findings. Result letter will be mailed to the patient. Note: At least 10% of breast cancer is not imaged by mammography. Dictated by: Dictated on workstation # [id number]
== END ==
LOC: RAD 10:30
PROVIDERS: ATTEND Internal Medicine
DX: Z12.31 Encounter for screening mammogram for malignant neoplasm of breast (principal)
CPT/HCPCS: 77063; 77067

== ENCOUNTER 2021-11-02 21:03 | Emergency (ER) | payer MEDICARE ==
[~2021-11-02] VITALS: Ht 152.4 cm; Wt 65.0 kg
[2021-11-02 21:31] LABS: BASOPHILS # (AUTO) 0.1 10^3/uL (0.0-0.1); BASOPHILS % (AUTO) 1 % (0-10); EOSINOPHILS # (AUTO) 0.2 10^3/uL (0.0-0.3); EOSINOPHILS % (AUTO) 2 % (0-10); HEMATOCRIT 35 % (35-52); HEMOGLOBIN 11.9 g/dL (11.5-16.0); LYMPHOCYTES # (AUTO) 1.8 10^3/uL (1.0-4.0); LYMPHOCYTES % (AUTO) 18 % (12-44); MEAN CORPUSCULAR HEMOGLOBIN 29 pg (25-34); MEAN CORPUSCULAR HGB CONC 34 g/dL (32-36); MEAN CORPUSCULAR VOLUME 85 fL (80-99); MEAN PLATELET VOLUME 9.6 fL (9.0-12.2); MONOCYTES # (AUTO) 0.8 10^3/uL (0.0-1.0); MONOCYTES % (AUTO) 8 % (0-12); NEUTROPHILS # (AUTO) 6.8 10^3/uL (1.8-7.8); NEUTROPHILS % (AUTO) 70 % (42-75); PLATELET COUNT 315 10^3/uL (130-400); WHITE BLOOD COUNT 9.7 10^3/uL (4.3-11.0)
[2021-11-02 21:41] LABS: ALBUMIN 3.8 GM/DL (3.2-4.5)
[2021-11-02 21:42] LABS: CHLORIDE 104 MMOL/L (98-107); INR 1.1 (0.8-1.4); POTASSIUM 3.4 MMOL/L (3.6-5.0); PROTHROMBIN TIME PATIENT 14.8 SEC (12.2-14.7); SODIUM 140 MMOL/L (135-145)
[2021-11-02 21:43] LABS: CALCIUM 9.3 MG/DL (8.5-10.1)
[2021-11-02 21:44] LABS: GLUCOSE 123 MG/DL (70-105); TOTAL PROTEIN 6.8 GM/DL (6.4-8.2)
[2021-11-02 21:45] LABS: CARBON DIOXIDE 22 MMOL/L (21-32)
[2021-11-02] MEDS ORDERED: ASPIRIN 81 MG CHEW (CHILDREN'S ASA) PO ONE (21:45)
[2021-11-02 21:46] LABS: BILIRUBIN,TOTAL 0.5 MG/DL (0.1-1.0)
[2021-11-02 21:47] LABS: BILIRUBIN,URINE NEGATIVE (NEGATIVE); CLARITY,URINE CLEAR; COLOR,URINE YELLOW; GLUCOSE, URINE (UA) NEGATIVE (NEGATIVE); KETONES,URINE NEGATIVE (NEGATIVE); LEUKOCYTE ESTERASE ,URINE 2+ (NEGATIVE); NITRITE,URINE NEGATIVE (NEGATIVE); PROTEIN,URINE 3+ (NEGATIVE)
[2021-11-02 21:47] LABS: ALKALINE PHOSPHATASE 79 U/L (40-136)
[2021-11-02 21:48] LABS: CREATININE SERUM 0.73 MG/DL (0.60-1.30); GFR ESTIMATED 82
[2021-11-02 21:49] LABS: BUN/CREATININE RATIO 15
[2021-11-02 21:51] LABS: ALANINE AMINOTRANSFERASE 12 U/L (0-55); CREATINE KINASE 46 U/L (29-168); MAGNESIUM 1.7 MG/DL (1.6-2.4)
--- NOTE | 2021-11-02 22:00 | Diagnostic Imaging Report ---
Indication: Chest pain Portable chest 1:44 PM There is a loop recorder projecting over the left side of the chest. Heart size is upper limits of normal. Pulmonary vasculature is normal. Lungs are clear. IMPRESSION: No acute abnormalities in the chest Dictated by: Dictated on workstation # [id number]
[2021-11-02 22:06] LABS: BACTERIA,URINE MODERATE /HPF
[2021-11-02 22:07] LABS: HYALINE CASTS, URINE 0-2 /LPF
[2021-11-02 22:11] LABS: TSH (THYROID ANALYZER) 1.58 UIU/ML (0.35-4.94)
[2021-11-02] MEDS ORDERED: cefTRIAXone 1 GM PRE-MIX 50 ML IV STA (22:12)
--- NOTE | 2021-11-02 22:12 | ED Chest Pain ---
General Chief Complaint: Chest Pain Stated Complaint: CARDIAC HX, ELEV BP 171/109, HR 151 Nursing Triage Note: Chest pain starting about 1999 this evening that has now resolved. She reports that she has had elevated blood pressure with systolic readings "about 200". She admits that she has been exhausted and not feeling well for approx 3 weeks Source: patient (PT IS POOR HISTORIAN ABOUT PMH), old records Allergies and Home Medications Allergies Coded Allergies: morphine (Unverified Allergy, Intermediate, NAUSEA, 09/07/18) acute vomiting occured when last given Patient Home Medication List Apixaban (Eliquis) 5 Mg Tablet, 5 MG PO BID, (Reported) Entered as Reported by: LA GEE on 09/07/18 1254 Diltiazem HCl (Cartia Xt) 120 Mg Cap.er.24h, 120 MG PO DAILY, (Reported) Entered as Reported by: EMMA YOUNG on 02/24/20 1030 Fluoxetine HCl (Prozac) 40 Mg Capsule, 40 MG PO DAILY, (Reported) Entered as Reported by: LA GEE on 03/20/17 09 Metoprolol Succinate (Metoprolol Succinate) 25 Mg Tab.er.24h, 25 MG PO DAILY, (Reported) Entered as Reported by: LA GEE on 03/20/17925 Omeprazole (Omeprazole) 40 Mg Capsule.dr, 40 MG PO BID, (Reported) Entered as Reported by: LA GEE on 03/20/17925 Past Dilibhp-Ovawlo-Uvtzxb Hx Patient Social History Tobacco Use?: No Substance use?: No Alcohol Use?: No Pt feels they are or have been: No Immunizations Up To Date Tetanus Booster (TDap): More than 5yrs PED Vaccines UTD: No Influenza Vaccine Up-to-Date: Yes; Up-to-Date First/Initial COVID19 Vaccinat: 2019 Second COVID19 Vaccination Rene: 2020 Third COVID19 Vaccination Date: 2021 Seasonal Allergies Seasonal Allergies: No Past Medical History Surgery/Hospitalization HX: gallbladder and hysterectomy Surgeries: Yes (LEFT LUMPECTOMY, CARDIAC ABLATION) Appendectomy, Hysterectomy Respiratory: No Currently Using CPAP: No Cardiac: Yes (HX ABLATION) Atrial Fibrillation, Hypertension Neurological: Yes TIA Reproductive Disorders: No 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 Sexually Transmitted Disease: No HIV/AIDS: No Genitourinary: No Gastrointestinal: Yes Gastroesophageal Reflux, Otero's Esophagus, Gall Bladder Disease Musculoskeletal: No Endocrine: No HEENT: Yes (GLASSES) Loss of Vision: Bilateral Hearing Impairment: Hard of Hearing Cancer: No Psychosocial: Yes Anxiety Integumentary: No Blood Disorders: No Adverse Reaction/Blood Tranf: No (HAS HAD BLOOD WITH NO REACTION) Family Medical History Cardiovascular disease Diabetes mellitus Hypertension No Pertinent Family Hx Physical Exam Vital Signs Vital Signs - First Documented Capillary Refill : Less Than 3 Seconds Height, Weight, BMI Height: 5'0.00" Weight: 134lbs. 2.0oz. 60.367147jx; 27.00 BMI Method:Stated Progress/Results/Core Measures Results/Orders Lab Results Laboratory Tests Test 11/02/21 21:20 11/02/21 21:40 11/02/21 23:00 Range/Units White Blood Count 9.7 4.3-11.0 10^3/uL Red Blood Count 4.10 3.80-5.11 10^6/uL Hemoglobin 11.9 11.5-16.0 g/dL Hematocrit 35 35-52 % Mean Corpuscular Volume 85 80-99 fL Mean Corpuscular Hemoglobin 29 25-34 pg Mean Corpuscular Hemoglobin Concent 34 32-36 g/dL Red Cell Distribution Width 12.8 10.0-14.5 % Platelet Count 315 130-400 10^3/uL Mean Platelet Volume 9.6 9.0-12.2 fL Immature Granulocyte % (Auto) 1 % Neutrophils (%) (Auto) 70 42-75 % Lymphocytes (%) (Auto) 18 12-44 % Monocytes (%) (Auto) 8 0-12 % Eosinophils (%) (Auto) 2 0-10 % Basophils (%) (Auto) 1 0-10 % Neutrophils # (Auto) 6.8 1.8-7.8 10^3/uL Lymphocytes # (Auto) 1.8 1.0-4.0 10^3/uL Monocytes # (Auto) 0.8 0.0-1.0 10^3/uL Eosinophils # (Auto) 0.2 0.0-0.3 10^3/uL Basophils # (Auto) 0.1 0.0-0.1 10^3/uL Immature Granulocyte # (Auto) 0.1 0.0-0.1 10^3/uL Prothrombin Time 14.8 H 12.2-14.7 SEC INR Comment 1.1 0.8-1.4 Activated Partial Thromboplast Time 35 24-35 SEC Sodium Level 140 135-145 MMOL/L Potassium Level 3.4 L 3.6-5.0 MMOL/L Chloride Level 104 98-107 MMOL/L Carbon Dioxide Level 22 21-32 MMOL/L Anion Gap 14 5-14 MMOL/L Blood Urea Nitrogen 11 7-18 MG/DL Creatinine 0.73 0.60-1.30 MG/DL Estimat Glomerular Filtration Rate 82 BUN/Creatinine Ratio 15 Glucose Level 123 H 70-105 MG/DL Calcium Level 9.3 8.5-10.1 MG/DL Corrected Calcium 9.5 8.5-10.1 MG/DL Magnesium Level 1.7 1.6-2.4 MG/DL Total Bilirubin 0.5 0.1-1.0 MG/DL Aspartate Amino Transf (AST/SGOT) 23 5-34 U/L Alanine Aminotransferase (ALT/SGPT) 12 0-55 U/L Alkaline Phosphatase 79 40-136 U/L Total Creatine Kinase 46 29-168 U/L Creatine Kinase MB 1.0 <6.6 NG/ML Troponin I < 0.028 <0.028 NG/ML B-Type Natriuretic Peptide 348.9 H <100.0 PG/ML Total Protein 6.8 6.4-8.2 GM/DL Albumin 3.8 3.2-4.5 GM/DL TSH [place] Testing 1.58 0.35-4.94 UIU/ML Urine Color YELLOW Urine Clarity CLEAR Urine pH 6.0 5-9 Urine Specific [place] >=1.030 1.016-1.022 Urine Protein 3+ H NEGATIVE Urine Glucose (UA) NEGATIVE NEGATIVE Urine Ketones NEGATIVE NEGATIVE Urine Nitrite NEGATIVE NEGATIVE Urine Bilirubin NEGATIVE NEGATIVE Urine Urobilinogen 0.2 < = 1.0 MG/DL Urine Leukocyte Esterase 2+ H NEGATIVE Urine RBC (Auto) 3+ H NEGATIVE Urine RBC 5-10 H /HPF Urine WBC 10-25 H /HPF Urine Squamous Epithelial Cells 5-10 /HPF Urine Crystals NONE /LPF Urine Bacteria MODERATE H /HPF Urine Casts PRESENT /LPF Urine Hyaline Casts 0-2 H /LPF Urine Mucus MODERATE H /LPF Urine Culture Indicated YES Influenza Type A (RT-PCR) Not Detected Not Detecte Influenza Type B (RT-PCR) Not Detected Not Detecte SARS-CoV-2 RNA (RT-PCR) Not Detected Not Detecte My Orders Orders - FRANK RIVERA DO Ed Iv/Invasive Line Start (11/02/21 21:24) Ekg Tracing (11/02/21:24) Monitor-Rhythm Ecg Trace Only (11/02/21:24) Bnp Sneha (11/02/21:24) Cbc With Automated Diff (11/02/21:24) Comprehensive Metabolic Panel (11/02/21:24) Creatine Kinase (11/02/21:24) Creatine Kinase Mb (11/02/21:) Magnesium (11/02/21:) Protime With Inr (11/02/21:) Partial Thromboplastin Time (11/02/21:24) Thyroid Analyzer (11/02/21:24) Ua Culture If Indicated (11/02/21:24) Troponin I [place] (11/02/21 21:24) Chest 1 View, Ap/Pa Only (11/02/21 21:35) Aspirin Chewable Tablet (Baby Aspirin Ch (11/02/21 21:45) Urine Culture (11/02/21 21:40) Ceftriaxone 1 Gm Pre-Mix (Rocephin 1 Gm (11/02/21 22:12) Ct Angio Chest W (11/02/21 22:27) Iohexol Injection (Omnipaque 350 Mg/Ml 1 (11/02/21 22:30) Received Contrast (Hold Metformin- Contr (11/02/21 22:30) Sodium Chloride Flush (Catheter Flush Sy (11/02/21 22:30) Ns (Ivpb) (Sodium Chloride 0.9% Ivpb Bag (11/02/21 22:30) Covid 19 Inhouse Test (11/02/21 22:57) Influenza A And B By Pcr (11/02/21 22:57) Isolation Central Supply Req (11/02/21 22:57) Medications Given in ED Current Medications Medications Dose Ordered Sig/Thais Route Start Time Stop Time Status Last Admin Dose Admin Aspirin 324 mg ONCE ONCE PO 11/02/21 21:45 11/02/21 21:46 DC 11/02/21 21:56 324 MG Vital Signs/I&O 11/02/21 11/02/21 11/02/21 21:11 21:11 21:37 Temp 36.8 36.8 Pulse 79 79 Resp 20 20 B/P (MAP) 160/73 160/73 (102) Pulse Ox 97 97 O2 Delivery Room Air Room Air Room Air 11/03/21 00:00 Intake Total 50 ml Balance 50 ml Blood Pressure Mean: 102 Departure Impression Primary Impression: Chest pain Additional Impression: UTI (urinary tract infection) Departure-Patient Inst. Referrals: JAMES KIMBLE MD (PCP/Family) Primary Care Physician FRANK RIVERA DO November 02, 2021 22:12
[2021-11-02] MEDS ORDERED: IOHEXOL 350 MG/ML 100 ML (OMNIPAQUE 350) VIAL IV ONE (22:30)
[2021-11-02] MEDS ORDERED: NS 100 ML (IVPB) BAG IV ONE (22:30)
[2021-11-02] MEDS ORDERED: CATHETER FLUSH 10 ML SYR IV PRN (22:30)
[2021-11-02] MEDS ORDERED: HOLD METFORMIN - RECEIVED CONTRAST 20 ML VIAL IV SCH (22:30)
--- NOTE | 2021-11-02 22:55 | Diagnostic Imaging Report ---
EXAMINATION: CT angiography of the chest. TECHNIQUE: Contrast enhanced thin section helical images were obtained through the chest with intravenous contrast timed for the optimal opacification of the arterial structures per CTA protocol. Post-processing, reconstructions and interpretation of angiographic images of the vessels was performed. 3D MIP reconstructions were performed and reviewed. All CT scans use one or more of the following dose optimizing techniques: automated exposure control, MA and/or KvP adjustment based on patient size and exam type or iterative reconstruction. HISTORY: PE suspected, high prob. COMPARISON: None available. FINDINGS: Vascular: No filling defects within the pulmonary arteries. Thoracic aorta is normal in caliber. Calcification of the aorta and coronary vessels. Thyroid: The thyroid is normal. Mediastinum: Heart size is normal without significant pericardial effusion. No suspicious lymphadenopathy. Lungs and airways: There are bilateral pleural effusions with bibasilar atelectasis. No pneumothorax. There are mild groundglass opacities within the lung bases. The airways are normal. Upper abdomen: The gallbladder is surgically absent. Musculoskeletal: Degenerative changes of the spine without suspicious osseous lesion or compression fracture. IMPRESSION: 1. No findings of pulmonary embolus. 2. Small bilateral pleural effusions with bibasilar atelectasis or groundglass opacities which could be seen with atypical pneumonia. Dictated by: Dictated on workstation # [id number]
[2021-11-03 01:43] VITALS: BP 100/72
== END 2021-11-03 01:23 | disposition short-term general hospital (02) ==
LOC: EDUNIT# 21:03 → ER 21:05
DX: R07.89 Other chest pain (principal); N39.0 Urinary tract infection, site not specified; I10 Essential (primary) hypertension; Z20.822 Contact with and (suspected) exposure to COVID-19
CPT/HCPCS: 36415; 71045; 71275; 80053; 81000; 82550; 82553; 83735; 83880; 84443; 84484; 85025; 85610; 85730; 87088; 87636; 93005; 93041

== ENCOUNTER 2022-09-16 17:54 | Observation (INO) | payer MEDICARE ==
[~2022-09-16] VITALS: Ht 152 cm; Wt 64.3 kg
[2022-09-16] MEDS ORDERED: ASPIRIN 81 MG CHEW (CHILDREN'S ASA) PO ONE (18:00)
[2022-09-16] MEDS ORDERED: NITROGLYCERIN 0.4 MG SL TABS BTL 25'S SL PRN ×2 (18:00→21:30)
[2022-09-16] MEDS ORDERED: dilTIAZem DRIP PRE-MIX 125 ML IV ONE (18:03)
[2022-09-16 18:10] LABS: BASOPHILS # (AUTO) 0.1 10^3/uL (0.0-0.1); BASOPHILS % (AUTO) 1 % (0-10); EOSINOPHILS # (AUTO) 0.2 10^3/uL (0.0-0.3); EOSINOPHILS % (AUTO) 1 % (0-10); HEMATOCRIT 40 % (35-52); HEMOGLOBIN 13.9 g/dL (11.5-16.0); LYMPHOCYTES # (AUTO) 2.8 10^3/uL (1.0-4.0); LYMPHOCYTES % (AUTO) 21 % (12-44); MEAN CORPUSCULAR HEMOGLOBIN 28 pg (25-34); MEAN CORPUSCULAR HGB CONC 34 g/dL (32-36); MEAN CORPUSCULAR VOLUME 82 fL (80-99); MEAN PLATELET VOLUME 9.7 fL (9.0-12.2); MONOCYTES # (AUTO) 0.9 10^3/uL (0.0-1.0); MONOCYTES % (AUTO) 6 % (0-12); NEUTROPHILS # (AUTO) 9.3 10^3/uL (1.8-7.8); NEUTROPHILS % (AUTO) 70 % (42-75); PLATELET COUNT 311 10^3/uL (130-400); WHITE BLOOD COUNT 13.3 10^3/uL (4.3-11.0)
--- NOTE | 2022-09-16 18:17 | ED Cardiac General ---
History of Present Illness General Chief Complaint: Chest Pain Stated Complaint: CHEST PAIN Nursing Triage Note: PT PRESENTS TO ED VIA POV FROM HOME WITH COMPLAINTS OF CP DESCRIBED PRESSURE THAT RADIATES TO BOTH ARMS SINCE 1429 TODAY. PT ALSO REPORTS NAUSEA. Source: patient (VERY DIFFICULT AND VERY LIMITED HISTORIAN), old records History of Present Illness Date Seen by Provider: Sep 16, 2022 Time Seen by Provider: 18:00 Initial Comments PT ARRIVES VIA POV FROM HOME C/O CHEST PAIN SINCE 1429 TODAY STATES IT IS A PRESSURE IN HER CHEST, AND RADIATES DOWN BOTH ARMS SHE HAS HAD SOME NAUSEA, NO VOMITING SHE IS UNABLE TO STATE IF SHE FEELS SHORT OF BREATH OR NOT NO SWELLING IN LEGS OR FEET ON ARRIVAL, HR IS 168, PT STATES SHE HAS HISTORY OF ATRIAL FIBRILLATION. SHE IS UNABLE TO STATE IF SHE HAS SENSATION OF HER HEART BEATING FAST OR NOT SHE STATES SHE HAS HAD BEEN "SHOCKED" SEVERAL TIMES BY DR. AC FOR THIS SHE ALSO STATES SHE HAS BEEN TO FOR THIS AND STATES "THEY SCRAPED SOMETHING IN MY HEART--SCAR TISSUE OR SOMETHING" SHE TAKES ELIQUIS, AND STATES SHE HAS NOT MISSED ANY DOSES. TOOK HER MORNING MEDICATIONS, BUT NO EVENING MEDICATIONS. SHE DOES NOT KNOW ANY OF HER OTHER MEDICATIONS. ON REVIEW OF PRIOR RECORDS, PT HAS HAD CARDIOVERSIONS DONE HERE, AND DID HAVE A CARDIAC ABLATION HERE BY DR. CORNEJO 02/2020 Allergies and Home Medications Allergies Coded Allergies: morphine (Unverified Allergy, Intermediate, NAUSEA, 09/07/18) acute vomiting occured when last given Patient Home Medication List Apixaban (Eliquis) 5 Mg Tablet, 5 MG PO BID, (Reported) Entered as Reported by: LA GEE on 09/07/18 1254 Diltiazem HCl (Cartia Xt) 120 Mg Cap.er.24h, 120 MG PO DAILY, (Reported) Entered as Reported by: EMMA YOUNG on 02/24/20 1030 Fluoxetine HCl (Prozac) 40 Mg Capsule, 40 MG PO DAILY, (Reported) Entered as Reported by: LA GEE on 03/20/17925 Metoprolol Succinate (Metoprolol Succinate) 25 Mg Tab.er.24h, 25 MG PO DAILY, (Reported) Entered as Reported by: LA GEE on 03/20/17925 Omeprazole (Omeprazole) 40 Mg Capsule., 40 MG PO BID, (Reported) Entered as Reported by: LA GEE on 03/20/17925 Past Ojocvtp-Fwgrgz-Spktau Hx Patient Social History Tobacco Use?: No Substance use?: No Alcohol Use?: No Pt feels they are or have been: No Immunizations Up To Date Tetanus Booster (TDap): More than 5yrs PED Vaccines UTD: No Influenza Vaccine Up-to-Date: No; Not Current First/Initial COVID19 Vaccinat: 2019 Second COVID19 Vaccination Rene: 2020 Third COVID19 Vaccination Date: 2021 Seasonal Allergies Seasonal Allergies: No Past Medical History Surgery/Hospitalization HX: gallbladder and hysterectomy PMH: AFIB, HTN, ANXIETY, GERD Surgeries: Yes (LEFT LUMPECTOMY, CARDIAC ABLATION; LOOP RECORDER) Appendectomy, Breast, Cardiac, Gallbladder, Hysterectomy, Oophorectomy Respiratory: No Currently Using CPAP: No Cardiac: Yes (HX ABLATION AND LOOP RECORDER) Atrial Fibrillation, Hypertension Neurological: Yes TIA Reproductive Disorders: No Female Reproductive Disorders: Denies [employer] 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, Menopausal Sexually Transmitted Disease: No HIV/AIDS: No Genitourinary: No Gastrointestinal: Yes Gastroesophageal Reflux, Otero's Esophagus, Gall Bladder Disease Musculoskeletal: No Endocrine: No HEENT: Yes (GLASSES) Loss of Vision: Bilateral Hearing Impairment: Hard of Hearing Cancer: No Psychosocial: Yes Anxiety Integumentary: No Blood Disorders: No Adverse Reaction/Blood Tranf: No (HAS HAD BLOOD WITH NO REACTION) Family Medical History Cardiovascular disease Diabetes mellitus Hypertension No Pertinent Family Hx PAST SURGICAL HISTORY: -HYSTERECTOMY/BILATERAL SALPINGO-OOPHORECTOMY -CHOLECYSTECTOMY -APPENDECTOMY -LOOP RECORDER -CARDIAC ABLATION FOR ATRIAL FIBRILLATION AT . -MULTIPLE CARDIOVERSIONS FOR ATRIAL FIBRILLATION Physical Exam Vital Signs Vital Signs - First Documented 09/16/22 09/16/22 18:01 18:14 Temp 35.9 Pulse 168 Resp 16 B/P (MAP) 154/100 (118) Pulse Ox 96 O2 Delivery Nasal Cannula O2 Flow Rate 2.00 Capillary Refill : Less Than 3 Seconds Height, Weight, BMI Height: 5'0.00" Weight: 134lbs. 2.0oz. 60.107113gq; 27.00 BMI Method:Stated Progress/Results/Core Measures Results/Orders Lab Results Laboratory Tests Test 09/16/22 18:02 Range/Units White Blood Count 13.3 H 4.3-11.0 10^3/uL Red Blood Count 4.92 3.80-5.11 10^6/uL Hemoglobin 13.9 11.5-16.0 g/dL Hematocrit 40 35-52 % Mean Corpuscular Volume 82 80-99 fL Mean Corpuscular Hemoglobin 28 25-34 pg Mean Corpuscular Hemoglobin Concent 34 32-36 g/dL Red Cell Distribution Width 12.9 10.0-14.5 % Platelet Count 311 130-400 10^3/uL Mean Platelet Volume 9.7 9.0-12.2 fL Immature Granulocyte % (Auto) 1 % Neutrophils (%) (Auto) 70 42-75 % Lymphocytes (%) (Auto) 21 12-44 % Monocytes (%) (Auto) 6 0-12 % Eosinophils (%) (Auto) 1 0-10 % Basophils (%) (Auto) 1 0-10 % Neutrophils # (Auto) 9.3 H 1.8-7.8 10^3/uL Lymphocytes # (Auto) 2.8 1.0-4.0 10^3/uL Monocytes # (Auto) 0.9 0.0-1.0 10^3/uL Eosinophils # (Auto) 0.2 0.0-0.3 10^3/uL Basophils # (Auto) 0.1 0.0-0.1 10^3/uL Immature Granulocyte # (Auto) 0.1 0.0-0.1 10^3/uL Prothrombin Time 15.7 H 12.2-14.7 SEC INR Comment 1.2 0.8-1.4 Activated Partial Thromboplast Time 34 24-35 SEC D-Dimer 0.30 0.00-0.49 UG/ML Sodium Level 139 135-145 MMOL/L Potassium Level 3.8 3.6-5.0 MMOL/L Chloride Level 104 98-107 MMOL/L Carbon Dioxide Level 20 L 21-32 MMOL/L Anion Gap 15 H 5-14 MMOL/L Blood Urea Nitrogen 21 H 7-18 MG/DL Creatinine 0.93 0.60-1.30 MG/DL Estimat Glomerular Filtration Rate 61 BUN/Creatinine Ratio 23 Glucose Level 140 H 70-105 MG/DL Calcium Level 10.4 H 8.5-10.1 MG/DL Corrected Calcium 10.0 8.5-10.1 MG/DL Magnesium Level 2.1 1.6-2.4 MG/DL Total Bilirubin 0.4 0.1-1.0 MG/DL Aspartate Amino Transf (AST/SGOT) 20 5-34 U/L Alanine Aminotransferase (ALT/SGPT) 13 0-55 U/L Alkaline Phosphatase 96 40-136 U/L Total Creatine Kinase 48 29-168 U/L Creatine Kinase MB 1.3 <6.6 NG/ML Myoglobin 30.2 10.0-92.0 NG/ML Troponin I < 0.028 <0.028 NG/ML B-Type Natriuretic Peptide 270.4 H <100.0 PG/ML Total Protein 7.9 6.4-8.2 GM/DL Albumin 4.5 3.2-4.5 GM/DL Amylase Level 52 25-125 U/L Lipase 58 8-78 U/L TSH [place] Testing 2.02 0.35-4.94 UIU/ML My Orders Orders - FRANK RIVERA DO Ekg Tracing (09/16/22 17:58) Chest 1 View, Ap/Pa Only (09/16/22 18:00) Ekg Tracing (09/16/22 18:00) Cbc With Automated Diff (09/16/22 18:00) Magnesium (09/16/22 18:00) Comprehensive Metabolic Panel (09/16/22 18:00) Myoglobin Serum (09/16/22 18:00) Protime With Inr (09/16/22 18:00) Partial Thromboplastin Time (09/16/22 18:00) Creatine Kinase (09/16/22 18:00) Creatine Kinase Mb (09/16/22 18:00) Lipase (09/16/22 18:00) Amylase (09/16/22 18:00) Bnp Sneha (09/16/22 18:00) Fibrin Degradation Products (09/16/22 18:00) Troponin I [place] (09/16/22 18:00) O2 (09/16/22 18:00) Monitor-Rhythm Ecg Trace Only (09/16/22 18:00) Ed Iv/Invasive Line Start (09/16/22 18:00) Aspirin Chewable Tablet (Baby Aspirin Ch (09/16/22 18:00) Nitroglycerin 0.4 Mg Btl 25's (Nitrostat (09/16/22 18:00) Diltiazem Drip Pre-Mix (Cardizem Drip Pr (09/16/22 18:03) Diltiazem Injection (Cardizem Injection) (09/16/22 18:03) Thyroid Analyzer (09/16/22 18:12) Enoxaparin Injection (Lovenox Injection) (09/16/22 18:30) Diltiazem Drip Pre-Mix (Cardizem Drip Pr (09/16/22 18:30) Diltiazem Injection (Cardizem Injection) (09/16/22 18:30) Digoxin Injection (Lanoxin Injection) (09/16/22 18:30) Ekg Tracing (09/16/22 18:42) Ekg Tracing (09/16/22 19:42) Medications Given in ED Current Medications Medications Dose Ordered Sig/Thais Route Start Time Stop Time Status Last Admin Dose Admin Aspirin 324 mg ONCE ONCE PO 09/16/22 18:00 09/16/22 18:02 DC 09/16/22 18:12 324 MG Digoxin 0.5 mg ONCE ONCE IV 09/16/22 18:30 09/16/22 18:31 DC 09/16/22 19:31 0.5 MG Diltiazem HCl 20 mg ONCE ONCE IVP 09/16/22 18:30 09/16/22 18:31 DC 09/16/22 18:06 20 MG Enoxaparin Sodium 70 mg ONCE ONCE SC 09/16/22 18:30 09/16/22 18:31 DC 09/16/22 18:30 70 MG Vital Signs/I&O 09/16/22 09/16/22 09/16/22 09/16/22 18:01 18:06 18:07 18:14 Temp 35.9 Pulse 168 168 168 Resp 16 B/P (MAP) 154/100 (118) 154/100 154/100 Pulse Ox 96 99 O2 Delivery Nasal Cannula O2 Flow Rate 2.00 Blood Pressure Mean: 118 Progress Progress Note : Progress Note GIVEN: -ASPIRIN -CARDIZEM BOLUS AND DRIP -DIGOXIN -LOVENOX HR DOWN WITH CARDIZEM TO LESS THAN 100, BP 120'S/70'S. PT IS SYMPTOM-FREE 1929--PT NOW IN NORMAL SINUS RHYTHM. VITALS STABLE. PT ASYMPTOMATIC. REVIEWED PRIOR RECORDS, INCLUDING ER VISITS, ADMITS/H&P'S/CONSULTS/DISCHARGE SUMMARIES, TESTS/PROCEDURES Departure Communication (Admissions) 1920--SPOKE WITH DR. ALMANZA, HOSPITALIST, ACCEPTS PT FOR ADMIT 1921--SPOKE WITH DR. SINGH, [employer], ORDERS NOTED. WILL HAVE DR. AC CONTACTED IN AM. Impression Primary Impression: Atrial fibrillation with rapid ventricular response Additional Impressions: Chronic atrial fibrillation Chest pain Departure-Patient Inst. Referrals: JAMES KIMBLE MD (PCP/Family) Primary Care Physician FRANK RIVERA DO Sep 16, 2022 18:17
[2022-09-16 18:26] LABS: ALBUMIN 4.5 GM/DL (3.2-4.5); POTASSIUM 3.8 MMOL/L (3.6-5.0)
[2022-09-16 18:27] LABS: CALCIUM 10.4 MG/DL (8.5-10.1)
[2022-09-16 18:28] LABS: TOTAL PROTEIN 7.9 GM/DL (6.4-8.2)
[2022-09-16 18:30] LABS: BILIRUBIN,TOTAL 0.4 MG/DL (0.1-1.0)
[2022-09-16] MEDS ORDERED: dilTIAZem DRIP PRE-MIX 125 ML IV SCH ×2 (18:30→21:30)
[2022-09-16] MEDS ORDERED: ENOXAPARIN 80 MG/0.8 ML (LOVENOX) SYR SC ONE (18:30)
[2022-09-16] MEDS ORDERED: DIGOXIN 0.25 MG/ML (LANOXIN) 2 ML AMP IV ONE (18:30)
[2022-09-16 18:31] LABS: INR 1.2 (0.8-1.4); PROTHROMBIN TIME PATIENT 15.7 SEC (12.2-14.7)
[2022-09-16 18:32] LABS: CREATININE SERUM 0.93 MG/DL (0.60-1.30)
[2022-09-16 18:35] LABS: MAGNESIUM 2.1 MG/DL (1.6-2.4)
[2022-09-16 18:42] LABS: CREATINE KINASE MB 1.3 NG/ML (<6.6)
--- NOTE | 2022-09-16 18:43 | Diagnostic Imaging Report ---
INDICATION: Chest pain COMPARISON: 11/02/2021. TECHNIQUE: Single radiograph of the chest dated 09/16/2022. FINDINGS: Loop recorder is again seen overlying the left chest. The cardiac silhouette is at upper limits of normal in size. No significant pulmonary vascular congestion. Stable chronic interstitial opacities are seen involving the lungs bilaterally. No new focal pulmonary opacity. No significant pleural effusion. No pneumothorax. No acute osseous abnormality. IMPRESSION: No acute cardiopulmonary abnormality with postsurgical and senescent changes as described above. Dictated by: Dictated on workstation # [id number]
[2022-09-16] MEDS ORDERED: ONDANSETRON 4 MG/2 ML (SDV) Z0FRAN IVP PRN (21:30)
[2022-09-16] MEDS ORDERED: DIGOXIN 0.25 MG/ML (LANOXIN) 2 ML AMP IV PRN (21:30)
[2022-09-16] MEDS ORDERED: fentaNYL INJ 100 MCG/2 ML AMP IVP PRN (21:30)
[2022-09-16] MEDS ORDERED: CATHETER FLUSH 10 ML SYR IVP PRN (21:45)
[2022-09-16] MEDS: CATHETER FLUSH 10 ML SYR IVP SCH (22:21)
[2022-09-16] MEDS ORDERED: NS IV 500 ML 500 ML IV PRN (23:15)
[2022-09-17 05:26] LABS: BASOPHILS # (AUTO) 0.1 10^3/uL (0.0-0.1); BASOPHILS % (AUTO) 1 % (0-10); EOSINOPHILS # (AUTO) 0.1 10^3/uL (0.0-0.3); EOSINOPHILS % (AUTO) 2 % (0-10); HEMATOCRIT 36 % (35-52); HEMOGLOBIN 12.4 g/dL (11.5-16.0); LYMPHOCYTES # (AUTO) 2.5 10^3/uL (1.0-4.0); LYMPHOCYTES % (AUTO) 27 % (12-44); MEAN CORPUSCULAR HEMOGLOBIN 28 pg (25-34); MEAN CORPUSCULAR HGB CONC 34 g/dL (32-36); MEAN CORPUSCULAR VOLUME 82 fL (80-99); MEAN PLATELET VOLUME 10.2 fL (9.0-12.2); MONOCYTES # (AUTO) 0.7 10^3/uL (0.0-1.0); MONOCYTES % (AUTO) 8 % (0-12); NEUTROPHILS # (AUTO) 5.8 10^3/uL (1.8-7.8); NEUTROPHILS % (AUTO) 63 % (42-75); PLATELET COUNT 265 10^3/uL (130-400); WHITE BLOOD COUNT 9.2 10^3/uL (4.3-11.0)
[2022-09-17 05:44] LABS: ALBUMIN 3.9 GM/DL (3.2-4.5); BILIRUBIN,TOTAL 0.4 MG/DL (0.1-1.0); CALCIUM 9.4 MG/DL (8.5-10.1); CREATININE SERUM 0.69 MG/DL (0.60-1.30); MAGNESIUM 2.1 MG/DL (1.6-2.4); PHOSPHORUS 3.9 MG/DL (2.3-4.7); POTASSIUM 3.6 MMOL/L (3.6-5.0)
[2022-09-17] MEDS: CATHETER FLUSH 10 ML SYR IVP SCH ×2 (05:50→14:43)
[2022-09-17] MEDS ORDERED: POTASSIUM CL 10MEQ/50ML IVPB 50 ML IV SCH (06:00)
[2022-09-17] MEDS ORDERED: KCL 20 MEQ TAB (K-DUR) PO SCH (06:00)
[2022-09-17] MEDS ORDERED: MAGNESIUM 1 GM/100 ML IVPB 100 ML IV SCH (06:00)
[2022-09-17] MEDS ORDERED: APIXABAN 5 MG (ELIQUIS) TABLET PO SCH (09:00)
[2022-09-17] MEDS ORDERED: KCL 20 MEQ TAB (K-DUR) PO ONE (09:00)
[2022-09-17] MEDS ORDERED: ASPIRIN E.C. 81 MG (ECOTRIN) TAB PO SCH (09:00)
--- NOTE | 2022-09-17 09:02 | Consultation-Cardiology ---
HPI-Cardiology Cardiology Consultation: Date of Consultation 09/17/22 Time Seen by a Provider: 08:30 Date of Admission 09-16-22 Attending Physician Hemant Masterson MD Admitting Physician Admitting Physician: Matt Ellsworth MD Attending Physician: Matt Ellsworth MD Consulting Physician Pooja Galo MD HPI: Chief Complaint: A-fib with RVR Ms. Warren is an 82 yr old female admitted to ICU 2 from the ED. She reports yesterday she started having mid-sternal chest pressure which radiated across her chest and into her arms bilat, radiating down to her fingers. She states the discomfort was constant for about 3 hours at home. She reports she felt nauseated at times, but had no emesis. She reports palpitations. No SOB. She has chronic DWYER, which is unchanged in the recent past. She reports after 3 hours of constant chest pressure she came to the ED and was found to be in a-fib with RVR. She converted to SR in the ED. She reports the chest pressure imp roved in the ED, but she was still having some mild pressure when she got to her room up here. She reports nothing made the discomfort worse. She reports no chest discomfort this morning. She reports her primary walking dragline operator is Dr. Henry in [place], [place]. She has not seen him in year. Review of Systems-Cardiology Review of Systems Constitutional: No chills, No fever, No malaise Eyes: No vision change Ears/Nose/Throat: No epistaxis, No recent hearing loss Respiratory: As described under HPI Cardiovascular: As described under HPI Gastrointestinal: As described under HPI Genitourinary: No dysuria, No hematuria Musculoskeletal: joint pain Skin: No rash on exposed areas, No ulcerations on exposed areas Psychiatric/Neurological: No anxiety, No depression, No seizure, No focal weakness, No syncope Hematologic: No bleeding abnormalities LLW-Hsrjex-Ytmbnv Hx Patient Social History Smoking Status: Never a Smoker 2nd Hand Smoke Exposure: No Have you traveled recently?: No Alcohol Use?: No Pt feels they are or have been: Yes Immunizations Up To Date Tetanus Booster (TDap): More than 5yrs Date of Pneumonia Vaccine: Apr 08, 2014 Date of Influenza Vaccine: Apr 08, 2014 Past Medical History PMH As described under Assessment. Family Medical History Family Medical History: She reports her mother had a stroke and pacemaker. She reports her father passed from an [place] at age 33. Bladimir reports she has 2 brothers who have CAD. Family History: Cardiovascular disease Diabetes mellitus Hypertension Allergies and Home Medications Allergies Coded Allergies: morphine (Unverified Allergy, Intermediate, NAUSEA, 09/07/18) acute vomiting occured when last given Patient Home Medication List Apixaban (Eliquis) 5 Mg Tablet, 5 MG PO BID, (Reported) Entered as Reported by: LA GEE on 09/07/18 1254 Last Action: Reviewed Diltiazem HCl (Diltiazem 24Hr ER) 120 Mg Cap.er.24h, 240 MG PO DAILY, (Reported) Entered as Reported by: QUITA VILLANUEVA on 09/17/22 100 Last Action: Reviewed Fluoxetine HCl (Fluoxetine HCl) 40 Mg Capsule, 40 MG PO DAILY, (Reported) Entered as Reported by: QUITA VILLANUEVA on 09/17/22 100 Last Action: Reviewed Metoprolol Succinate (Metoprolol Succinate) 25 Mg Tab.er.24h, 25 MG PO DAILY, (Reported) Entered as Reported by: LA GEE on 03/20/17925 Last Action: Reviewed Omeprazole (Omeprazole) 40 Mg Capsule.dr, 40 MG PO BID, (Reported) Entered as Reported by: LA GEE on 03/20/17925 Last Action: Reviewed Discontinued Medications Diltiazem HCl (Cartia Xt) 120 Mg Cap.er.24h, 120 MG PO DAILY, (Reported) Discontinued Reason: Duplicate Order Entered as Reported by: EMMA YOUNG on 02/24/20 1030 Last Action: Discontinued Fluoxetine HCl (Prozac) 40 Mg Capsule, 40 MG PO DAILY, (Reported) Discontinued Reason: No Longer Taking Entered as Reported by: LA GEE on 03/20/17925 Last Action: Discontinued Physical Exam-Cardiology Physical Exam Vital Signs/I&O Capillary Refill : Less Than 3 Seconds Constitutional: AAO x 3, well-developed, well-nourished HEENT: PERRL, hearing is well preserved, oral hygience is good Neck: No carotid bruit; carotid pulses are 2 + bilaterally Respiratory: No accessory muscle use, No respiratory distress; chest expansion is symmetric, lungs clear to auscultation Cardiovascular: regular rate-rhythm; No JVD; S1 and S2 Gastrointestinal: No tender; soft, round, audible bowel sounds Extremities: no lower extremity edema bilateral Neurologic/Psychiatric: grossly intact (moves all extremities) Skin: No rash on exposed areas, No ulcerations on exposed areas Data Review Labs Microbiology 09/17/22 MRSA Screen - Final, Complete MRSA not isolated Radiology NAME: KATE WARREN [facility] REC#: [id number] PT STATUS: REG ER : 1940 PHYSICIAN: FRANK RIVERA DO ADMIT DATE: 09/16/22/ER Signed Date of Exam:09/16/22 CHEST 1 VIEW, AP/PA ONLY INDICATION: Chest pain COMPARISON: 11/02/2021. TECHNIQUE: Single radiograph of the chest dated 09/16/2022. FINDINGS: Loop recorder is again seen overlying the left chest. The cardiac silhouette is at upper limits of normal in size. No significant pulmonary vascular congestion. Stable chronic interstitial opacities are seen involving the lungs bilaterally. No new focal pulmonary opacity. No significant pleural effusion. No pneumothorax. No acute osseous abnormality. IMPRESSION: No acute cardiopulmonary abnormality with postsurgical and senescent changes as described above. Dictated by: Dictated on workstation # [id number] Dict: 09/16/22 1839 Trans: 09/16/22 185 [facility] [id number] Interpreted by: KHADAR BABIN MD Electronically signed by: KHADAR BABIN MD 09/16/221855 ECG Impression ECG Initial ECG Impression: Atrial Fibrillation w/RVR A/P-Cardiology Assessment/Admission Diagnosis A-fib with RVR - converted on Cardizem gtt Chest pain - undetermined etiology H/O PAF - has had cardioversions x 3 in the past by Dr. Todd - h/o ablation by Dr. Jennings at [facility] in the past - h/o ablation by Dr. Bain in the past - OAC with Eliquis at home HTN HLD GERD Discussion and Recomendations A-fib with RVR - converted to SR with Cardizem gtt - maintaining SR H/O PAF - follows with Dr. Henry (see history above) - start Cardizem CD 180mg daily - restart Eliquis 5mg BID Chest pain - undetermined etiology - no evidence of ACS - advise MPI - she is agreeable - echocardiogram today Monitor lab closely Replace electrolytes as indicated We would like to thank medical services for this consult JACOB RAE Sep 17, 2022 09:02
--- NOTE | 2022-09-17 09:47 | Short Stay Summary-Hospitalist ---
History of Present Illness HPI/Chief Complaint Pt is an 82yoCF with a PMH a fib who presented to the ER due to chest pain. She states it started yesterday afternoon and radiated to her neck and both arms. She was no short of breath and thought that her heart rate may be high. She checked it and it was in the 160s. It was 168 in arrival to the ER. She has a long history of a fib and has been cardioverted and had an ablation in the past. She was started on cardizem in the ER and admitted to the ICU. She has since converted back to sinus rhythm and feels much better. She has no further chest pain. Source: patient Date Seen 09/17/22 Time Seen by a Provider: 08:15 Attending Physician Hemant Masterson MD PCP Admitting Physician: Matt Ellsworth MD Attending Physician: Matt Ellsworth MD Referring Physician Date of Admission Sep 16, 2022 at 20:38 Home Medications & Allergies Home Medications Reviewed patient Home Medication Reconciliation performed by pharmacy medication reconciliations control valve technician and/or nursing. Patients Allergies have been reviewed. Allergies Allergies Coded Allergies morphine (Unverified Allergy, Intermediate, NAUSEA, 09/07/18) acute vomiting occured when last given Past Cseseqb-Tenlzs-Saitng Hx Patient Social History Tobacco Use?: No Smoking Status: Never a Smoker Smokeless Tobacco Frequency: Never a User Use of E-Cig and/or Vaping dev: No Substance use?: No Alcohol Use?: No Pt feels they are or have been: Yes Immunizations Up To Date Date of Influenza Vaccine: Apr 08, 2014 First/Initial COVID19 Vaccinat: 2020 Second COVID19 Vaccination Rene: 2020 Tetanus Booster (TDap): Unknown Hepatitis A: No Hepatitis B: No PED Vaccines UTD: No Date of Pneumonia Vaccine: Apr 08, 2014 Seasonal Allergies Seasonal Allergies: No Current Status status: No status: No Advance Directives: No Communicates: Verbally Primary Language: Omani Preferred Spoken Language: Omani Is interpretation needed?: No Sensory deficits: Vision impairment, Hearing impairment Implanted or Applied Medical D: Other Past Medical History Surgeries: Appendectomy, Breast, Cardiac, Gallbladder, Hysterectomy, Oophorectomy Currently Using CPAP: No Atrial Fibrillation, Hypertension TIA MACHINE MAINTENANCE History: Hysterectomy, Menopausal Sexually Transmitted Disease: No HIV/AIDS: No Gastroesophageal Reflux, Otero's Esophagus, Gall Bladder Disease Loss of Vision: Bilateral Hearing Impairment: Hard of Hearing Anxiety Blood Disorders: No Adverse Reaction/Blood Tranf: No (HAS HAD BLOOD WITH NO REACTION) Family Medical History Cardiovascular disease Diabetes mellitus Hypertension No Pertinent Family Hx PAST SURGICAL HISTORY: -HYSTERECTOMY/BILATERAL SALPINGO-OOPHORECTOMY -CHOLECYSTECTOMY -APPENDECTOMY -LOOP RECORDER -CARDIAC ABLATION FOR ATRIAL FIBRILLATION AT . -MULTIPLE CARDIOVERSIONS FOR ATRIAL FIBRILLATION Review of Systems Constitutional: see HPI Physical Exam Physical Exam Vital Signs Vital Signs - First Documented 09/16/22 09/16/22 18:01 18:14 Temp 35.9 Pulse 168 Resp 16 B/P (MAP) 154/100 (118) Pulse Ox 96 O2 Delivery Nasal Cannula O2 Flow Rate 2.00 Capillary Refill : Less Than 3 Seconds Height, Weight, BMI Height: 5'0.00" Weight: 134lbs. 2.0oz. 60.304341ig; 27.83 BMI Method:Stated General Appearance: No Apparent Distress, Chronically ill Respiratory: Lungs Clear, No Respiratory Distress Cardiovascular: Regular Rate, Rhythm, No Murmur Gastrointestinal: Normal Bowel Sounds, Non Tender, Soft Extremity: No Pedal Edema Neurologic/Psychiatric: Alert, Oriented x3, Normal Mood/Affect Results Results/Procedures Labs Laboratory Tests 09/16/22 18:02 09/17/22 04:47 Patient resulted labs reviewed. Imaging: Reviewed Imaging Report Imaging [facility] [place] NAME: KATE WARREN [facility] REC#: [id number] PT STATUS: REG ER : 1940 PHYSICIAN: FRANK RIVERA DO ADMIT DATE: 09/16/22/ER Signed Date of Exam:09/16/22 CHEST 1 VIEW, AP/PA ONLY INDICATION: Chest pain COMPARISON: 11/02/2021. TECHNIQUE: Single radiograph of the chest dated 09/16/2022. FINDINGS: Loop recorder is again seen overlying the left chest. The cardiac silhouette is at upper limits of normal in size. No significant pulmonary vascular congestion. Stable chronic interstitial opacities are seen involving the lungs bilaterally. No new focal pulmonary opacity. No significant pleural effusion. No pneumothorax. No acute osseous abnormality. IMPRESSION: No acute cardiopulmonary abnormality with postsurgical and senescent changes as described above. Dictated by: Dictated on workstation # [id number] Dict: 09/16/22 1839 Trans: 09/16/22 1856 ELIAS [id number] Interpreted by: KHADAR BABIN MD Electronically signed by: KHADAR BABIN MD 09/16/22 1536 Short Stay Diagnosis Discharge Diagnosis-Short Stay Admission Diagnosis A fib with RVR Final Discharge Diagnosis A fib with RVR Conclusion Plan A fib with RVR Chest pain Started on cardizem gtt and converted to sinus Troponin negative x3 Cardiology consulted, appreciate recs Planning for stress this afternoon If negative, hopefully DC home Diagnosis/Problems Diagnosis/Problems (1) Atrial fibrillation with rapid ventricular response Status: Acute (2) Chronic atrial fibrillation Status: Acute (3) Chest pain Status: Acute ALEKSANDRA PAULINO MD Sep 17, 2022 09:46
[2022-09-17] MEDS ORDERED: DILT-27 PO (10:09)
[2022-09-17] MEDS ORDERED: FLUO40CA PO (10:09)
[2022-09-17] MEDS ORDERED: REGADENOSON 0.4 MG/5 ML SYR (LEXISCAN) IV ONE ×2 (12:30→13:00)
[2022-09-17 12:56] VITALS: BP 139/68
--- NOTE | 2022-09-17 13:08 | Discharge Inst-Simple/Standard ---
Discharge Inst-Standard Discharge Medications New, Converted or Re-Newed RX: Transmitted to Pharmacy Patient Instructions/Follow Up Plan of Care/Instructions/FU: Please continue to take your medications as written. Please follow up with your primary care doctor to follow up this hospital stay. Activity as Tolerated: Yes Discharge Diet: No Restrictions Return to The Hospital For: Chest pain, shortness of breath, fever, weakness, if you feel you are getting worse. ALEKSANDRA PAULINO MD Sep 17, 2022 13:08
--- NOTE | 2022-09-17 20:41 | Consultation-Cardiology ---
HPI-Cardiology Cardiology Consultation: Date of Consultation 09/17/22 Time Seen by a Provider: 06:30 Date of Admission Attending Physician Hemant Masterson MD Admitting Physician Admitting Physician: Matt Ellsworth MD Attending Physician: Matt Ellsworth MD Consulting Physician Physician requesting consult: Dr Smith HPI: Chief Complaint: Reason for Card consult: A-fib with RVR Ms. Skelton is an 82 yr old female admitted to ICU 2 from the ED. She reports yesterday she started having mid-sternal chest pressure which radiated across her chest and into her arms bilat, radiating down to her fingers. She states the discomfort was constant for about 3 hours at home. She reports she felt nauseated at times, but had no emesis. She reports palpitations. No SOB. She has chronic DWYER, which is unchanged in the recent past. She reports after 3 hours of constant chest pressure she came to the ED and was found to be in a-fib with RVR. She converted to SR in the ED. She reports the chest pressure improved in the ED, but she was still having some mild pressure when she got to her room up here. She reports nothing made the discomfort worse. She reports no chest discomfort this morning. She reports her primary family service worker is Dr. Henry in [place], [place]. She has not seen him in year. Review of Systems-Cardiology Review of Systems Constitutional: No chills, No fever, No malaise Eyes: No vision change Ears/Nose/Throat: No epistaxis, No recent hearing loss Respiratory: As described under HPI Cardiovascular: As described under HPI Gastrointestinal: As described under HPI Genitourinary: No dysuria, No hematuria Musculoskeletal: joint pain Skin: No rash on exposed areas, No ulcerations on exposed areas Psychiatric/Neurological: No anxiety, No depression, No seizure, No focal weakness, No syncope Hematologic: No bleeding abnormalities FSO-Perepw-Ykdjmc Hx Patient Social History Smoking Status: Never a Smoker 2nd Hand Smoke Exposure: No Have you traveled recently?: No Alcohol Use?: No Pt feels they are or have been: Yes Immunizations Up To Date Tetanus Booster (TDap): More than 5yrs Date of Pneumonia Vaccine: Apr 08, 2014 Date of Influenza Vaccine: Apr 08, 2014 Past Medical History PMH As described under Assessment. Family Medical History Family Medical History: She reports her mother had a stroke and pacemaker. She reports her father passed from an [place] at age 33. Bladimir reports she has 2 brothers who have CAD. Family History: Cardiovascular disease Diabetes mellitus Hypertension Allergies and Home Medications Allergies Coded Allergies: morphine (Unverified Allergy, Intermediate, NAUSEA, 09/07/18) acute vomiting occured when last given Patient Home Medication List Home Medication List Reviewed: Yes Apixaban (Eliquis) 5 Mg Tablet, 5 MG PO BID, (Reported) Entered as Reported by: LA GEE on 09/07/18 1254 Last Action: Reviewed Diltiazem HCl (Diltiazem 24Hr ER) 120 Mg Cap.er.24h, 240 MG PO DAILY, (Reported) Entered as Reported by: QUITA VILLANUEVA on 09/17/221008 Last Action: Reviewed Fluoxetine HCl (Fluoxetine HCl) 40 Mg Capsule, 40 MG PO DAILY, (Reported) Entered as Reported by: QUITA VILLANUEVA on 09/17/221008 Last Action: Reviewed Metoprolol Succinate (Metoprolol Succinate) 25 Mg Tab.er.24h, 25 MG PO DAILY, (Reported) Entered as Reported by: LA GEE on 03/20/17925 Last Action: Reviewed Omeprazole (Omeprazole) 40 Mg Capsule.dr, 40 MG PO BID, (Reported) Entered as Reported by: LA GEE on 03/20/17925 Last Action: Reviewed Discontinued Medications Diltiazem HCl (Cartia Xt) 120 Mg Cap.er.24h, 120 MG PO DAILY, (Reported) Discontinued Reason: Duplicate Order Entered as Reported by: EMMA YOUNG on 02/24/20 1030 Last Action: Discontinued Fluoxetine HCl (Prozac) 40 Mg Capsule, 40 MG PO DAILY, (Reported) Discontinued Reason: No Longer Taking Entered as Reported by: LA GEE on 03/20/17925 Last Action: Discontinued Physical Exam-Cardiology Physical Exam Vital Signs/I&O 09/17/22 09/17/22 09/17/22 09/17/22 09:00 10:00 11:00 12:56 Pulse 79 79 80 86 B/P (MAP) 126/57 (80) 118/51 (73) 124/61 (82) 139/68 (91) Pulse Ox 95 94 90 O2 Delivery Room Air Room Air Room Air 09/17/22 09/17/22 09/17/22 09/17/22 14:00 15:00 15:17 15:50 Temp 36.8 Pulse 85 81 B/P (MAP) 120/71 (87) 127/61 (83) Pulse Ox 97 95 96 O2 Delivery Room Air Room Air Room Air 09/17/22 09/17/22 09/17/22 09/17/22 15:51 16:00 17:00 18:00 Temp 36.8 Pulse 79 80 84 B/P (MAP) 126/64 (84) 117/74 (88) 110/60 (77) Pulse Ox 94 96 94 O2 Delivery Room Air Room Air Room Air 09/17/22 09/17/22 19:43 19:43 Temp 36.7 36.7 09/17/22 00:00 Intake Total 320 ml Output Total 300 ml Balance 20 ml Capillary Refill : Less Than 3 Seconds Constitutional: AAO x 3, well-developed, well-nourished HEENT: PERRL, hearing is well preserved, oral hygience is good Neck: No carotid bruit; carotid pulses are 2 + bilaterally Respiratory: No accessory muscle use, No respiratory distress; chest expansion is symmetric, lungs clear to auscultation Cardiovascular: regular rate-rhythm; No JVD; S1 and S2 Gastrointestinal: No tender; soft, round, audible bowel sounds Extremities: no lower extremity edema bilateral Neurologic/Psychiatric: grossly intact (moves all extremities) Skin: No rash on exposed areas, No ulcerations on exposed areas Data Review Labs Laboratory Tests 09/16/22 21:53: Troponin I < 0.028 09/16/22 23:54: Troponin I < 0.028 09/17/22 04:47: White Blood Count 9.2, Red Blood Count 4.44, Hemoglobin 12.4, Hematocrit 36, Mean Corpuscular Volume 82, Mean Corpuscular Hemoglobin 28, Mean Corpuscular Hemoglobin Concent 34, Red Cell Distribution Width 12.7, Platelet Count 265, Mean Platelet Volume 10.2, Immature Granulocyte % (Auto) 0, Neutrophils (%) (Auto) 63, Lymphocytes (%) (Auto) 27, Monocytes (%) (Auto) 8, Eosinophils (%) (Auto) 2, Basophils (%) (Auto) 1, Neutrophils # (Auto) 5.8, Lymphocytes # (Auto) 2.5, Monocytes # (Auto) 0.7, Eosinophils # (Auto) 0.1, Basophils # (Auto) 0.1, Immature Granulocyte # (Auto) 0.0, Sodium Level 138, Potassium Level 3.6, Chloride Level 106, Carbon Dioxide Level 19L, Anion Gap 13, Blood Urea Nitrogen 15, Creatinine 0.69, Estimat Glomerular Filtration Rate 86, BUN/Creatinine Ratio 22, Glucose Level 97, Calcium Level 9.4, Corrected Calcium 9.5, Phosphorus Level 3.9, Magnesium Level 2.1, Total Bilirubin 0.4, Aspartate Amino Transf (AST/SGOT) 19, Alanine Aminotransferase (ALT/SGPT) 12, Alkaline Phosphatase 86, Total Protein 7.0, Albumin 3.9, Triglycerides Level 145, Cholesterol Level 190, LDL Cholesterol Direct 125, VLDL Cholesterol 29, HDL Cholesterol 41 A/P-Cardiology Assessment/Admission Diagnosis A-fib with RVR - converted on Cardizem gtt - currently NSR - Echo on 09/17/22: Left ventricle: EF 50-55%. There were no regional wall motion abnormalities identified. Mild MR. Mild aortic stenosis. PASP 25 - 30 mmHg Chest pain - undetermined etiology - MPI on 09/17/22: no ischemia/infarction H/O PAF - has had cardioversions x 3 in the past by Dr. Todd - h/o ablation by Dr. Jennings at [facility] in the past - h/o ablation by Dr. Bain in the past - OAC with Eliquis at home HTN HLD GERD Discussion and Recomendations * We reviewed and discussed her CV issues * We discussed her cardiac w/u * Continue dilt for rate control and Eliquis for stroke prophylaxis * Cardiac f/u advised. She says she will do so with her family service worker AMANDA Cota MD FACP [facility] CCDS Sep 17, 2022 20:41
--- NOTE | 2022-09-17 20:49 | STRESS TEST ---
DATE OF SERVICE: 09/17/2022 RESTING AND POST REGADENOSON TECHNETIUM-99M TETROFOSMIN SPECT CT IMAGING ORDERING PHYSICIAN: Vanessa Mccann APRN. ATTENDING PHYSICIAN: Dr. Ellsworth. PRIMARY PHYSICIAN: Dr. Masterson. OTHER PHYSICIAN: Dr. Henry. Baseline images were carried out after injection of 10.96 mCi of technetium-99m tetrofosmin. This was followed by 0.4 mg regadenoson and 32.4 mCi of technetium-99m tetrofosmin for stress imaging. The electrocardiogram showed sinus rhythm with premature atrial contractions. There is nonspecific ST abnormality that is more prominent in the inferolateral leads. The electrocardiogram did not change significantly with regadenoson infusion. The patient noted shortness of breath following regadenoson infusion, which resolved in a few minutes. Review of images at rest and following stress does not indicate any significant perfusion defects consistent with myocardial ischemia or infarction. Gated images show normal global left ventricular systolic function with normal regional wall motion. Left ventricular ejection fraction is calculated to be 59%. Left ventricular end-diastolic volume is 57 mL. TID is 1.08. CONCLUSIONS: 1. No evidence of any significant myocardial ischemia or infarction on this study. 2. Normal regional wall motion. 3. Normal global left ventricular systolic function with a calculated ejection fraction of 59%. Job ID: [id number] DocumentID: [id number] Dictated Date: 09/17/2022 17:03:57 Gamb Cutter Date: 09/17/2022 20:47:00 Dictated By: AMANDA SINGH MD; MA; FACP; FACC;
== END 2022-09-17 19:59 | disposition home or self-care (01) ==
LOC: EDUNIT# 17:54 → ER 17:58 → INTOOBSV 20:38 → ICU 20:38
PROVIDERS: ADMIT Internal Medicine; ATTEND Internal Medicine
DX: I48.20 Chronic atrial fibrillation, unspecified (principal); I10 Essential (primary) hypertension; E78.5 Hyperlipidemia, unspecified; K21.9 Gastro-esophageal reflux disease without esophagitis; Z79.01 Long term (current) use of anticoagulants
CPT/HCPCS: 71045; 78452; 80053 ×2; 80061; 82150; 82550; 82553; 83690; 83735 ×2; 83874; 83880; 84100; 84443; 84484; 85025 ×2; 85379; 85610; 85730; 87081; 93005; 93017; 93041; 96365; 96366; 96372; 96375; 96376; 99284; A9502; C8929; G0378; 36415; 93306

== ENCOUNTER → 2022-10-11 | Outpatient (CLI) | payer MEDICARE ==
--- NOTE | 2022-10-11 12:48 | Diagnostic Imaging Report ---
Indication: Routine screening. Comparison is made with prior mammograms 09/13/2021 and 09/07/2020. 2-D and 3-D bilateral screening mammography was performed with CAD. Both breasts are heterogeneously dense, limiting the sensitivity of mammography. Loop recorder overlies the medial left breast soft tissues. There are scattered benign parenchymal and vascular calcifications bilaterally. No mass or malignant-appearing microcalcifications are seen. Axillae are unremarkable. IMPRESSION: BI-RADS Category 2 No mammographic features suspicious for malignancy are identified. ACR BI-RADS Category 2: Benign findings. Result letter will be mailed to the patient. Note: At least 10% of breast cancer is not imaged by mammography. Dictated by: Dictated on workstation # [id number]
== END ==
LOC: RAD 09:08
PROVIDERS: ATTEND Internal Medicine
DX: Z12.31 Encounter for screening mammogram for malignant neoplasm of breast (principal)
CPT/HCPCS: 77063; 77067